=== PATIENT | female | born 1940 | race Caucasian/White ===

== ENCOUNTER 2020-01-11 08:49 | Outpatient (CLI) | payer MEDICARE, SELFPAY ==
[2020-01-11 08:59] LABS: Basophils Absolute Auto 0.06 K/mm3 (0.00-0.10); Basophils Percent Auto 0.9 % (0.0-1.0); Eosinophils Absolute Auto 0.17 K/mm3 (0.02-0.50); Eosinophils Percent Auto 2.4 % (1.0-6.0); Hematocrit 43.2 % (35.0-42.0); Hemoglobin 14.1 g/dL (11.7-13.8); Immature Granulocyte Absolute 0.03 K/mm3 (0.00-0.00); Immature Granulocyte Percent A 0.4 % (0.0-0.0); Lymphocytes Absolute Auto 2.45 K/mm3 (1.10-4.50); Lymphocytes Percent Auto 34.8 % (18.0-42.0); Mean Corpuscular HGB Conc 32.6 g/dL (32.0-36.0); Mean Corpuscular Hemoglobin 29.9 pg (27.0-31.0); Mean Corpuscular Volume 91.7 fL (78.0-102.0); Mean Platelet Volume 12.1 fl (9.2-11.8); Monocytes Absolute Auto 0.84 K/mm3 (0.10-0.90); Monocytes Percent Auto 11.9 % (2.0-11.0); Neutrophils Absolute Auto 3.5 K/mm3 (1.7-7.2); Neutrophils Percent Auto 49.6 % (50.0-70.0); Platelet Count Result 133 K/mm3 (150-420); Red Blood Count 4.71 M/mm3 (4.20-5.40); Red Cell Distribution Width 13.7 % (11.6-14.4); White Blood Count 7.1 K/mm3 (4.8-10.8)
[2020-01-11 09:23] LABS: MALB Creatinine Ratio 22.7 mg/g (0-30); Microalbumin Urine Random 10.9 mg/L
[2020-01-11 10:04] LABS: Alanine Aminotransferase 19 U/L (14-59); Albumin Level 3.6 g/dL (3.4-5.0); Alkaline Phosphatase 69 U/L (46-116); Anion Gap 9.4 mmol/L (7-16); Aspartate Amino Transferase 18 U/L (15-37); Bilirubin,Total 0.6 mg/dL (0.00-1.00); Blood Urea Nitrogen 17 mg/dL (7-18); Calcium 9.1 mg/dL (8.5-10.1); Carbon Dioxide 30 mmol/L (21-32); Chloride 105 mmol/L (98-108); Estimated Glomerular Filt Rate 57; Glucose 106 mg/dL (70-99); Osmolality Calculated 291 mOsm/kg (285-295); Potassium 4.4 mmol/L (3.5-5.1); Sodium 140 mmol/L (136-145); Thyroid Stimulating Hormone 5.05 uIU/mL (0.36-3.74); Total Protein 6.5 g/dL (6.4-8.2)
== END 2020-01-11 08:50 | disposition home or self-care (01) ==
PROVIDERS: PCP Family Medicine; Visit Provider Family Medicine
DX: E78.2 Mixed hyperlipidemia (principal); E11.21 Type 2 diabetes mellitus with diabetic nephropathy; I10 Essential (primary) hypertension
CPT/HCPCS: 36415; 80053; 82043; 84443; 85025

== ENCOUNTER 2020-01-17 12:33 | Outpatient (CLI) | payer MEDICARE, SELFPAY ==
[2020-01-17 12:55] LABS: Hemoglobin A1C 7.2 % (<5.7)
== END 2020-01-17 12:34 | disposition home or self-care (01) ==
LOC: CHSLAB 12:35
PROVIDERS: PCP Family Medicine; Visit Provider Family Medicine
DX: E11.21 Type 2 diabetes mellitus with diabetic nephropathy (principal)
CPT/HCPCS: 36415; 83036

== ENCOUNTER 2020-03-27 11:11 | Outpatient (CLI) | payer MEDICARE, SELFPAY ==
--- NOTE | ~2020-03-27 | XR_ITS ---
EXAMINATION: XR ankle RT min 3V EXAM DATE: 03/27/2020 11:30 INDICATION: No known recent injury provided at this time. Pain of the right ankle. TECHNIQUE: Right ankle frontal, lateral and oblique projections obtained and reviewed. There is no p rior study for comparison. FINDINGS: The right ankle mortise appears intact. There are no acute fractures or dislocations iden tified. There is no subcutaneous gas. The soft tissue is unremarkable. There are no radiopaque fo reign bodies. There is mild to moderate right ankle primary osteoarthritis. Bulky hypertrophy along the posterior subtalar compartment. Large posterior, moderate size inferior calcaneal spurs. Moderat e polyarticular midfoot primary osteoarthritis. IMPRESSION: Osteoarthritis. Calcaneal spurs. Reviewed, dictated and finalized at location A.
== END 2020-03-27 11:12 | disposition home or self-care (01) ==
LOC: CHSIMG 11:13
PROVIDERS: PCP Family Medicine; Visit Provider Family Medicine
DX: M25.571 Pain in right ankle and joints of right foot (principal)
CPT/HCPCS: 73610

== ENCOUNTER 2020-03-29 10:58 | Outpatient (RCR) | payer MEDICARE, SELFPAY ==
--- NOTE | 2020-03-29 13:11 | PTOPEVAL ---
Thank you for referring Delilah Latif to [facility].? The patient is scheduled to be seen for therapy? __3__x/week for 9 visits. Please review, sign, date and return this plan of care YO. I agree with and certify that the following plan of care is medically necessary. Referring Physician Date Admitting Provider: Attending Provider: Tigre Romero MD Referring Provider: *PT Outpatient Evaluation Start: 03/29/20 11:04 Freq: Status: Active Protocol: Document 03/29/20 11:05 JOSEPH (Rec: 03/29/20 13:11 JOSEPH [id number]) Therapy Assessment Status Assessment Status Assessment Status Evaluation Evaluation Information Problem Diagnosis right foot and ankle pain Onset 03/14/20 Subjective Information Pt. reports that she began Query Text:As Reported By Patient/ noting foot pain about 2 weeks Family ago. She describes pain on the top of the right foot. She did undergo xray which revealed arthritis. She states that pain in the foot is increased with walking and standing activities. She states that she does not recall anything that will decrease her pain. She states that she is less active since developing foot pain. She reports that her goal is to decrease her right foot pain. Prior Level of Function Activity Level (Last 3 Months) Occupation retired Hand Dominance Right Activity of Daily Living Ability Independent Indoor/Home Mobility Independent Community Mobility Independent Stairs Ability Independent Functional Cognition (Planning, Shopping Independent , Taking Medications) Cooking Yes Cleaning Yes Laundry Yes Shopping Yes Driving Yes Pain Assessment Pain Scale Pain Scale Used Numeric (1 - 10) Self Report Pain Assessment Right Foot/Feet Reported Pain Level 8 Pain Description Aching Pain Frequency Intermittent Pain Aggravating Factors Walking,Weight Bearing/ Standing Pain Score Pain Score 8: Self Report Lower Extremity Range of Motion General Lower Extremity Range of Motion Gross Lower Extremity Range of Motion right ankle dorsiflexion 2 Comments degree
== END 2020-04-19 10:47 | disposition home or self-care (01) ==
LOC: CHSPT 10:58
PROVIDERS: PCP Family Medicine; Visit Provider Family Medicine
DX: M25.571 Pain in right ankle and joints of right foot (principal); M79.671 Pain in right foot
CPT/HCPCS: 97014; 97110; 97112; 97140; 97161; G0283

== ENCOUNTER 2020-05-07 09:54 | Outpatient (CLI) | payer MEDICARE, SELFPAY ==
[2020-05-07 10:15] LABS: Basophils Absolute Auto 0.07 K/mm3 (0.00-0.10); Basophils Percent Auto 0.9 % (0.0-1.0); Eosinophils Absolute Auto 0.15 K/mm3 (0.02-0.50); Hematocrit 42.9 % (35.0-42.0); Hemoglobin 13.7 g/dL (11.7-13.8); Immature Granulocyte Absolute 0.03 K/mm3 (0.00-0.00); Immature Granulocyte Percent A 0.4 % (0.0-0.0); Lymphocytes Absolute Auto 2.28 K/mm3 (1.10-4.50); Lymphocytes Percent Auto 30.4 % (18.0-42.0); Mean Corpuscular HGB Conc 31.9 g/dL (32.0-36.0); Mean Corpuscular Hemoglobin 29.3 pg (27.0-31.0); Mean Corpuscular Volume 91.7 fL (78.0-102.0); Monocytes Absolute Auto 0.76 K/mm3 (0.10-0.90); Monocytes Percent Auto 10.1 % (2.0-11.0); Neutrophils Absolute Auto 4.2 K/mm3 (1.7-7.2); Neutrophils Percent Auto 56.2 % (50.0-70.0); Platelet Count Result 154 K/mm3 (150-420); Red Blood Count 4.68 M/mm3 (4.20-5.40); Red Cell Distribution Width 13.5 % (11.6-14.4); White Blood Count 7.5 K/mm3 (4.8-10.8)
[2020-05-07 10:47] LABS: Hemoglobin A1C 6.7 % (<5.7)
[2020-05-07 11:48] LABS: Anion Gap 8 mmol/L (8-16); Blood Urea Nitrogen 16 mg/dL (7-18); Calcium 9.3 mg/dL (8.5-10.1); Carbon Dioxide 28 mmol/L (21-32); Chloride 105 mmol/L (98-108); Cholesterol 152 mg/dL (0-200); Estimated Glomerular Filt Rate > 60; Free T4 Free Thyroxine 1.03 ng/dL (0.76-1.46); Glucose 131 mg/dL (70-99); HDL Direct 63 mg/dL (40-60); LDL Cholesterol Calculated 64 mg/dL (<130); Osmolality Calculated 295 mOsm/kg (285-295); Potassium 4.7 mmol/L (3.5-5.1); Sodium 141 mmol/L (136-145); Thyroid Stimulating Hormone 5.03 uIU/mL (0.36-3.74); Triglycerides 127 mg/dL (0-150)
== END 2020-05-07 09:55 | disposition home or self-care (01) ==
LOC: CHSLAB 09:58
PROVIDERS: PCP Family Medicine; Visit Provider Internal Medicine Cardiovascular Disease
DX: E78.00 Pure hypercholesterolemia, unspecified (principal); I25.10 Atherosclerotic heart disease of native coronary artery without angina pectoris; E11.21 Type 2 diabetes mellitus with diabetic nephropathy
CPT/HCPCS: 36415; 80048; 80061; 83036; 84439; 84443; 85025

== ENCOUNTER 2020-08-08 10:44 | Outpatient (CLI) | payer MEDICARE, SELFPAY ==
[2020-08-08 11:03] LABS: Basophils Absolute Auto 0.06 K/mm3 (0.00-0.10); Basophils Percent Auto 0.7 % (0.0-1.0); Eosinophils Absolute Auto 0.34 K/mm3 (0.02-0.50); Eosinophils Percent Auto 3.9 % (1.0-6.0); Hematocrit 41.6 % (35.0-42.0); Hemoglobin 13.6 g/dL (11.7-13.8); Immature Granulocyte Absolute 0.03 K/mm3 (0.00-0.00); Immature Granulocyte Percent A 0.3 % (0.0-0.0); Immature Platelet Fraction Pct 7.6 % (1.0-7.0); Lymphocytes Absolute Auto 2.42 K/mm3 (1.10-4.50); Lymphocytes Percent Auto 28.1 % (18.0-42.0); Mean Corpuscular HGB Conc 32.7 g/dL (32.0-36.0); Mean Corpuscular Hemoglobin 28.9 pg (27.0-31.0); Mean Corpuscular Volume 88.5 fL (78.0-102.0); Mean Platelet Volume 11.9 fl (9.2-11.8); Monocytes Absolute Auto 0.86 K/mm3 (0.10-0.90); Neutrophils Absolute Auto 4.9 K/mm3 (1.7-7.2); Platelet Count Result 139 K/mm3 (150-420); Red Cell Distribution Width 13.2 % (11.6-14.4); White Blood Count 8.6 K/mm3 (4.8-10.8)
[2020-08-08 11:22] LABS: Hemoglobin A1C 7.6 % (<5.7)
[2020-08-08 12:25] LABS: Anion Gap 11 mmol/L (8-16); Blood Urea Nitrogen 19 mg/dL (7-18); Calcium 9.2 mg/dL (8.5-10.1); Carbon Dioxide 25 mmol/L (21-32); Chloride 103 mmol/L (98-108); Estimated Glomerular Filt Rate > 60; Free T4 Free Thyroxine 0.97 ng/dL (0.76-1.46); Glucose 167 mg/dL (70-99); Osmolality Calculated 294 mOsm/kg (285-295); Potassium 4.3 mmol/L (3.5-5.1); Sodium 139 mmol/L (136-145); Thyroid Stimulating Hormone 4.04 uIU/mL (0.36-3.74)
== END 2020-08-08 10:45 | disposition home or self-care (01) ==
LOC: CHSLAB 10:45
PROVIDERS: PCP Family Medicine; Visit Provider Family Medicine
DX: E11.21 Type 2 diabetes mellitus with diabetic nephropathy (principal); E78.2 Mixed hyperlipidemia; R94.6 Abnormal results of thyroid function studies
CPT/HCPCS: 36415; 80048; 83036; 84439; 84443; 85025; 85055

== ENCOUNTER 2020-09-11 10:50 | Outpatient (CLI) | payer MEDICARE, SELFPAY ==
--- NOTE | ~2020-09-11 | XR_ITS ---
EXAMINATION: XR lumbar spine 2-3V EXAM DATE: 09/11/2020 11:12 INDICATION: Right hip pain. TECHNIQUE: Lumber spine frontal, lateral, lateral L5-S1 projections for interpretation. Comparison is made to prior examination from 06/18/2017. FINDINGS: Diffuse mild to moderate lumbar disc disease. There is severe lumbar facet arthropathy. T he vertebral body heights are maintained. There is 3 mm anterolisthesis L4 on L5. No spondylolysis. M oderate abdominal aortic arterial sclerosis without evidence of aneurysm. Mild lumbar levoscoliosis. Evidence of mild progression in degenerative changes compared to prior study. Probable large peripher ally calcified gallstones. IMPRESSION: Severe lumbar facet arthropathy, mild to moderate disc disease. Reviewed, dictated and finalized at location A.
--- NOTE | ~2020-09-11 | XR_ITS ---
EXAMINATION: XR hip RT min 2V DATE: 09/11/2020 11:12 INDICATION: Right hip pain. TECHNIQUE: 2 views of right hip were obtained. COMPARISON: Right hip radiographs 06/18/2017 FINDINGS: Bone alignment is normal. No fracture. Right hip joint space is normal. IMPRESSION: 1. Normal right hip. Reviewed, dictated and finalized at location A. IMPRESSION: 1. Normal right hip.
== END 2020-09-11 10:51 | disposition home or self-care (01) ==
LOC: CHSIMG 10:52
PROVIDERS: PCP Family Medicine; Visit Provider Family Medicine
DX: M25.551 Pain in right hip (principal)
CPT/HCPCS: 72100; 73502

== ENCOUNTER 2020-12-12 08:36 | Outpatient (CLI) | payer MEDICARE, SELFPAY ==
[2020-12-12 08:56] LABS: Basophils Absolute Auto 0.06 K/mm3 (0.00-0.10); Basophils Percent Auto 0.8 % (0.0-1.0); Eosinophils Absolute Auto 0.22 K/mm3 (0.02-0.50); Eosinophils Percent Auto 3.1 % (1.0-6.0); Hemoglobin 13.6 g/dL (11.7-13.8); Immature Granulocyte Absolute 0.02 K/mm3 (0.00-0.00); Immature Granulocyte Percent A 0.3 % (0.0-0.0); Lymphocytes Absolute Auto 2.31 K/mm3 (1.10-4.50); Lymphocytes Percent Auto 32.7 % (18.0-42.0); Mean Corpuscular HGB Conc 33.2 g/dL (32.0-36.0); Mean Corpuscular Volume 90.3 fL (78.0-102.0); Monocytes Absolute Auto 0.69 K/mm3 (0.10-0.90); Monocytes Percent Auto 9.8 % (2.0-11.0); Neutrophils Absolute Auto 3.8 K/mm3 (1.7-7.2); Neutrophils Percent Auto 53.3 % (50.0-70.0); Platelet Count Result 120 K/mm3 (150-420); Red Blood Count 4.54 M/mm3 (4.20-5.40); Red Cell Distribution Width 13.7 % (11.6-14.4); White Blood Count 7.1 K/mm3 (4.8-10.8)
[2020-12-12 09:06] LABS: Hemoglobin A1C 7.6 % (<5.7)
[2020-12-12 10:10] LABS: Alanine Aminotransferase 18 U/L (14-59); Albumin Level 3.5 g/dL (3.4-5.0); Alkaline Phosphatase 71 U/L (46-116); Anion Gap 9 mmol/L (8-16); Aspartate Amino Transferase 12 U/L (15-37); Bilirubin,Total 0.6 mg/dL (0.00-1.00); Blood Urea Nitrogen 17 mg/dL (7-18); Calcium 9.2 mg/dL (8.5-10.1); Carbon Dioxide 27 mmol/L (21-32); Chloride 106 mmol/L (98-108); Estimated Glomerular Filt Rate > 60; Free T4 Free Thyroxine 1.02 ng/dL (0.76-1.46); Glucose 105 mg/dL (70-99); Osmolality Calculated 295 mOsm/kg (285-295); Potassium 4.3 mmol/L (3.5-5.1); Sodium 142 mmol/L (136-145); Total Protein 6.2 g/dL (6.4-8.2)
[2020-12-12 10:31] LABS: Thyroid Stimulating Hormone 4.63 uIU/mL (0.36-3.74)
== END 2020-12-12 08:37 | disposition home or self-care (01) ==
LOC: CHSLAB 08:38
PROVIDERS: PCP Family Medicine; Visit Provider Family Medicine
DX: E11.21 Type 2 diabetes mellitus with diabetic nephropathy (principal); R94.6 Abnormal results of thyroid function studies
CPT/HCPCS: 36415; 80053; 83036; 84439; 84443; 85025

== ENCOUNTER 2021-04-25 10:15 | Outpatient (CLI) | payer MEDICARE, SELFPAY ==
[2021-04-25 10:32] LABS: Basophils Absolute Auto 0.04 K/mm3 (0.00-0.10); Basophils Percent Auto 0.5 % (0.0-1.0); Eosinophils Percent Auto 2.5 % (1.0-6.0); Hematocrit 42.3 % (35.0-42.0); Hemoglobin 13.8 g/dL (11.7-13.8); Immature Granulocyte Absolute 0.04 K/mm3 (0.00-0.00); Immature Granulocyte Percent A 0.5 % (0.0-0.0); Lymphocytes Absolute Auto 2.43 K/mm3 (1.10-4.50); Lymphocytes Percent Auto 30.5 % (18.0-42.0); Mean Corpuscular HGB Conc 32.6 g/dL (32.0-36.0); Mean Corpuscular Hemoglobin 29.7 pg (27.0-31.0); Mean Corpuscular Volume 91.2 fL (78.0-102.0); Mean Platelet Volume 11.2 fl (9.2-11.8); Monocytes Percent Auto 10.1 % (2.0-11.0); Neutrophils Absolute Auto 4.5 K/mm3 (1.7-7.2); Neutrophils Percent Auto 55.9 % (50.0-70.0); Platelet Count Result 165 K/mm3 (150-420); Red Blood Count 4.64 M/mm3 (4.20-5.40); Red Cell Distribution Width 13.8 % (11.6-14.4)
[2021-04-25 10:36] LABS: Add Urine Microscopic? YES; Appearance Urine Clear (Clear); Bilirubin Urine Negative (Negative); Blood Urine Negative (Negative); Color Urine Light Yellow (Yellow); Glucose Urine UA Negative (Negative); Ketones Urine Negative (Negative); Leukocyte Esterase Ur 1+ (Negative); Nitrate Urine Negative (Negative); Protein Urine Negative (Negative); Specific Grav Ur 1.025 (1.010-1.020); Urobilinogen Urine 0.2 mg/dL (0.2-1.0)
[2021-04-25 10:43] LABS: RBC Urine None seen /hpf (0-2); Squamous Epithelial Cell Urine Many /hpf (Few)
[2021-04-25 10:44] LABS: Bacteria Urine 1+ /hpf; Hemoglobin A1C 7.8 % (<5.7)
[2021-04-25 10:52] LABS: Creatinine Urine 178.71 mg/dL (40-278); MALB Creatinine Ratio 7.2 mg/g (0-30); Microalbumin Urine Random < 13.0 mg/L
[2021-04-25 11:12] LABS: Alanine Aminotransferase 27 U/L (14-59); Albumin Level 3.6 g/dL (3.4-5.0); Alkaline Phosphatase 73 U/L (46-116); Anion Gap 10 mmol/L (8-16); Aspartate Amino Transferase 17 U/L (15-37); Bilirubin,Total 0.7 mg/dL (0.00-1.00); Blood Urea Nitrogen 16 mg/dL (7-18); Calcium 8.9 mg/dL (8.5-10.1); Carbon Dioxide 28 mmol/L (21-32); Chloride 105 mmol/L (98-108); Estimated Glomerular Filt Rate > 60; Free T4 Free Thyroxine 1.14 ng/dL (0.76-1.46); Glucose 146 mg/dL (70-99); Osmolality Calculated 300 mOsm/kg (285-295); Potassium 4.5 mmol/L (3.5-5.1); Sodium 143 mmol/L (136-145); Thyroid Stimulating Hormone 3.17 uIU/mL (0.36-3.74); Total Protein 6.4 g/dL (6.4-8.2)
== END 2021-04-25 10:16 | disposition home or self-care (01) ==
PROVIDERS: PCP Family Medicine; Visit Provider Family Medicine
DX: E11.21 Type 2 diabetes mellitus with diabetic nephropathy (principal)
CPT/HCPCS: 36415; 80053; 81001; 82043; 83036; 84439; 84443; 85025

== ENCOUNTER 2021-08-20 10:13 | Outpatient (CLI) | payer MEDICARE, SELFPAY ==
[2021-08-20 10:31] LABS: Basophils Absolute Auto 0.07 K/mm3 (0.00-0.10); Basophils Percent Auto 0.8 % (0.0-1.0); Eosinophils Absolute Auto 0.17 K/mm3 (0.02-0.50); Hemoglobin 14.3 g/dL (11.7-13.8); Immature Granulocyte Absolute 0.04 K/mm3 (0.00-0.00); Immature Granulocyte Percent A 0.5 % (0.0-0.0); Lymphocytes Absolute Auto 2.43 K/mm3 (1.10-4.50); Lymphocytes Percent Auto 28.6 % (18.0-42.0); Mean Corpuscular HGB Conc 32.5 g/dL (32.0-36.0); Mean Corpuscular Hemoglobin 29.7 pg (27.0-31.0); Mean Corpuscular Volume 91.3 fL (78.0-102.0); Mean Platelet Volume 11.7 fl (9.2-11.8); Monocytes Absolute Auto 0.83 K/mm3 (0.10-0.90); Monocytes Percent Auto 9.8 % (2.0-11.0); Neutrophils Percent Auto 58.3 % (50.0-70.0); Platelet Count Result 158 K/mm3 (150-420); Red Blood Count 4.82 M/mm3 (4.20-5.40); Red Cell Distribution Width 13.5 % (11.6-14.4); White Blood Count 8.5 K/mm3 (4.8-10.8)
[2021-08-20 10:55] LABS: Hemoglobin A1C 7.5 % (<5.7)
[2021-08-20 11:05] LABS: Anion Gap 10 mmol/L (8-16); Blood Urea Nitrogen 14 mg/dL (7-18); Calcium 9.5 mg/dL (8.5-10.1); Carbon Dioxide 29 mmol/L (21-32); Chloride 104 mmol/L (98-108); Cholesterol 145 mg/dL (0-200); Estimated Glomerular Filt Rate > 60; Glucose 158 mg/dL (70-99); HDL Direct 64 mg/dL (40-60); LDL Cholesterol Calculated 63 mg/dL (<130); Osmolality Calculated 299 mOsm/kg (285-295); Potassium 4.4 mmol/L (3.5-5.1); Sodium 143 mmol/L (136-145); Triglycerides 92 mg/dL (0-150)
== END 2021-08-20 10:14 | disposition home or self-care (01) ==
LOC: CHSLAB 10:16
PROVIDERS: PCP Family Medicine; Visit Provider Family Medicine
DX: E78.2 Mixed hyperlipidemia (principal); E11.21 Type 2 diabetes mellitus with diabetic nephropathy
CPT/HCPCS: 36415; 80048; 80061; 83036; 85025

== ENCOUNTER 2021-12-31 09:30 | Outpatient (CLI) | payer MEDICARE, SELFPAY ==
[2021-12-31 09:52] LABS: Basophils Absolute Auto 0.06 K/mm3 (0.00-0.10); Basophils Percent Auto 0.8 % (0.0-1.0); Eosinophils Absolute Auto 0.23 K/mm3 (0.02-0.50); Eosinophils Percent Auto 3.1 % (1.0-6.0); Hematocrit 42.7 % (35.0-42.0); Hemoglobin 13.9 g/dL (11.7-13.8); Immature Granulocyte Absolute 0.03 K/mm3 (0.00-0.00); Immature Granulocyte Percent A 0.4 % (0.0-0.0); Lymphocytes Absolute Auto 2.62 K/mm3 (1.10-4.50); Lymphocytes Percent Auto 34.9 % (18.0-42.0); Mean Corpuscular HGB Conc 32.6 g/dL (32.0-36.0); Mean Corpuscular Hemoglobin 29.6 pg (27.0-31.0); Mean Platelet Volume 12.3 fl (9.2-11.8); Monocytes Absolute Auto 0.74 K/mm3 (0.10-0.90); Monocytes Percent Auto 9.9 % (2.0-11.0); Neutrophils Absolute Auto 3.8 K/mm3 (1.7-7.2); Neutrophils Percent Auto 50.9 % (50.0-70.0); Platelet Count Result 135 K/mm3 (150-420); Red Blood Count 4.69 M/mm3 (4.20-5.40); Red Cell Distribution Width 13.7 % (11.6-14.4); White Blood Count 7.5 K/mm3 (4.8-10.8)
[2021-12-31 09:59] LABS: Hemoglobin A1C 7.9 % (<5.7)
[2021-12-31 10:02] LABS: Anion Gap 6 mmol/L (8-16); Blood Urea Nitrogen 17 mg/dL (7-18); Calcium 9.4 mg/dL (8.5-10.1); Carbon Dioxide 30 mmol/L (21-32); Chloride 106 mmol/L (98-108); Estimated Glomerular Filt Rate > 60; Glucose 157 mg/dL (70-99); Osmolality Calculated 298 mOsm/kg (285-295); Potassium 4.6 mmol/L (3.5-5.1); Sodium 142 mmol/L (136-145)
== END 2021-12-31 09:31 | disposition home or self-care (01) ==
LOC: CHSLAB 09:35
PROVIDERS: PCP Family Medicine; Visit Provider Family Medicine
DX: E78.2 Mixed hyperlipidemia (principal); E11.21 Type 2 diabetes mellitus with diabetic nephropathy
CPT/HCPCS: 36415; 80048; 83036; 85025

== ENCOUNTER 2022-04-22 09:59 | Outpatient (CLI) | payer MEDICARE, SELFPAY ==
[2022-04-22 10:22] LABS: Basophils Absolute Auto 0.06 K/mm3 (0.00-0.10); Basophils Percent Auto 0.8 % (0.0-1.0); Eosinophils Absolute Auto 0.16 K/mm3 (0.02-0.50); Eosinophils Percent Auto 2.1 % (1.0-6.0); Hematocrit 42.5 % (35.0-42.0); Hemoglobin 13.6 g/dL (11.7-13.8); Immature Granulocyte Absolute 0.03 K/mm3 (0.00-0.00); Immature Granulocyte Percent A 0.4 % (0.0-0.0); Lymphocytes Absolute Auto 2.41 K/mm3 (1.10-4.50); Lymphocytes Percent Auto 31.5 % (18.0-42.0); Mean Corpuscular Hemoglobin 29.4 pg (27.0-31.0); Mean Platelet Volume 12.2 fl (9.2-11.8); Monocytes Absolute Auto 0.75 K/mm3 (0.10-0.90); Monocytes Percent Auto 9.8 % (2.0-11.0); Neutrophils Absolute Auto 4.2 K/mm3 (1.7-7.2); Neutrophils Percent Auto 55.4 % (50.0-70.0); Platelet Count Result 126 K/mm3 (150-420); Red Blood Count 4.62 M/mm3 (4.20-5.40); Red Cell Distribution Width 13.4 % (11.6-14.4); White Blood Count 7.6 K/mm3 (4.8-10.8)
[2022-04-22 10:28] LABS: Creatinine Urine 118.61 mg/dL (40-278); MALB Creatinine Ratio 16.7 mg/g (0-30); Microalbumin Urine Random 19.9 mg/L
[2022-04-22 10:31] LABS: Hemoglobin A1C 7.6 % (<5.7)
[2022-04-22 10:48] LABS: Alanine Aminotransferase 17 U/L (14-59); Albumin Level 3.6 g/dL (3.4-5.0); Alkaline Phosphatase 78 U/L (46-116); Anion Gap 5 mmol/L (8-16); Aspartate Amino Transferase 13 U/L (15-37); Bilirubin,Total 0.7 mg/dL (0.00-1.00); Blood Urea Nitrogen 17 mg/dL (7-18); Calcium 9.2 mg/dL (8.5-10.1); Carbon Dioxide 31 mmol/L (21-32); Chloride 104 mmol/L (98-108); Estimated Glomerular Filt Rate > 60; Free T4 Free Thyroxine 1.16 ng/dL (0.76-1.46); Glucose 159 mg/dL (70-99); Osmolality Calculated 294 mOsm/kg (285-295); Potassium 4.7 mmol/L (3.5-5.1); Sodium 140 mmol/L (136-145); Total Protein 6.3 g/dL (6.4-8.2)
== END 2022-04-22 10:00 | disposition home or self-care (01) ==
LOC: CHSLAB 10:03
PROVIDERS: PCP Family Medicine; Visit Provider Family Medicine
DX: E11.21 Type 2 diabetes mellitus with diabetic nephropathy (principal)
CPT/HCPCS: 36415; 80053; 82043; 83036; 84439; 85025

== ENCOUNTER 2022-08-25 09:29 | Outpatient (CLI) | payer MEDICARE, SELFPAY ==
[2022-08-25 09:47] LABS: Basophils Absolute Auto 0.07 K/mm3 (0.00-0.10); Basophils Percent Auto 1.1 % (0.0-1.0); Eosinophils Absolute Auto 0.16 K/mm3 (0.02-0.50); Eosinophils Percent Auto 2.5 % (1.0-6.0); Hematocrit 41.4 % (35.0-42.0); Hemoglobin 13.6 g/dL (11.7-13.8); Immature Granulocyte Absolute 0.03 K/mm3 (0.00-0.00); Immature Granulocyte Percent A 0.5 % (0.0-0.0); Immature Platelet Fraction Pct 7.3 % (1.0-7.0); Lymphocytes Absolute Auto 2.38 K/mm3 (1.10-4.50); Lymphocytes Percent Auto 36.7 % (18.0-42.0); Mean Corpuscular HGB Conc 32.9 g/dL (32.0-36.0); Mean Corpuscular Hemoglobin 29.8 pg (27.0-31.0); Mean Corpuscular Volume 90.8 fL (78.0-102.0); Monocytes Absolute Auto 0.64 K/mm3 (0.10-0.90); Monocytes Percent Auto 9.9 % (2.0-11.0); Neutrophils Absolute Auto 3.2 K/mm3 (1.7-7.2); Neutrophils Percent Auto 49.3 % (50.0-70.0); Platelet Count Result 127 K/mm3 (150-420); Red Blood Count 4.56 M/mm3 (4.20-5.40); Red Cell Distribution Width 13.6 % (11.6-14.4); White Blood Count 6.5 K/mm3 (4.8-10.8)
[2022-08-25 10:07] LABS: Hemoglobin A1C 7.9 % (<5.7)
[2022-08-25 10:23] LABS: Alanine Aminotransferase 17 U/L (14-59); Albumin Level 3.5 g/dL (3.4-5.0); Alkaline Phosphatase 72 U/L (46-116); Anion Gap 10 mmol/L (8-16); Aspartate Amino Transferase 15 U/L (15-37); Bilirubin,Total 0.7 mg/dL (0.00-1.00); Blood Urea Nitrogen 19 mg/dL (7-18); Calcium 9.4 mg/dL (8.5-10.1); Carbon Dioxide 28 mmol/L (21-32); Chloride 106 mmol/L (98-108); Estimated Glomerular Filt Rate > 60; Glucose 149 mg/dL (70-99); Osmolality Calculated 303 mOsm/kg (285-295); Potassium 4.2 mmol/L (3.5-5.1); Sodium 144 mmol/L (136-145); Thyroid Stimulating Hormone 4.06 uIU/mL (0.36-3.74); Total Protein 6.2 g/dL (6.4-8.2)
[2022-08-25 17:13] LABS: Free T4 Free Thyroxine 1.13 ng/dL (0.76-1.46)
== END 2022-08-25 09:30 | disposition home or self-care (01) ==
LOC: CHSLAB 09:32
PROVIDERS: PCP Family Medicine; Visit Provider Family Medicine
DX: E11.21 Type 2 diabetes mellitus with diabetic nephropathy (principal); R94.6 Abnormal results of thyroid function studies
CPT/HCPCS: 36415; 80053; 83036; 84439; 84443; 85025; 85055

== ENCOUNTER 2022-11-21 10:22 | Outpatient (CLI) | payer MEDICARE, SELFPAY ==
[2022-11-21 10:43] LABS: Basophils Absolute Auto 0.07 K/mm3 (0.00-0.10); Eosinophils Absolute Auto 0.23 K/mm3 (0.02-0.50); Eosinophils Percent Auto 3.2 % (1.0-6.0); Hematocrit 42.6 % (35.0-42.0); Hemoglobin 13.6 g/dL (11.7-13.8); Immature Granulocyte Absolute 0.02 K/mm3 (0.00-0.00); Immature Granulocyte Percent A 0.3 % (0.0-0.0); Lymphocytes Absolute Auto 2.34 K/mm3 (1.10-4.50); Mean Corpuscular HGB Conc 31.9 g/dL (32.0-36.0); Mean Corpuscular Hemoglobin 29.3 pg (27.0-31.0); Mean Corpuscular Volume 91.8 fL (78.0-102.0); Monocytes Percent Auto 9.9 % (2.0-11.0); Neutrophils Absolute Auto 3.7 K/mm3 (1.7-7.2); Neutrophils Percent Auto 52.6 % (50.0-70.0); Platelet Count Result 127 K/mm3 (150-420); Red Blood Count 4.64 M/mm3 (4.20-5.40); Red Cell Distribution Width 13.7 % (11.6-14.4); White Blood Count 7.1 K/mm3 (4.8-10.8)
[2022-11-21 13:40] LABS: Alanine Aminotransferase 21 U/L (14-59); Albumin Level 3.5 g/dL (3.4-5.0); Alkaline Phosphatase 77 U/L (46-116); Anion Gap 6 mmol/L (8-16); Aspartate Amino Transferase 18 U/L (15-37); Bilirubin,Total 0.9 mg/dL (0.00-1.00); Blood Urea Nitrogen 22 mg/dL (7-18); Calcium 9.4 mg/dL (8.5-10.1); Carbon Dioxide 30 mmol/L (21-32); Chloride 106 mmol/L (98-108); Estimated Glomerular Filt Rate > 60; Glucose 139 mg/dL (70-99); Osmolality Calculated 299 mOsm/kg (285-295); Potassium 4.6 mmol/L (3.5-5.1); Sodium 142 mmol/L (136-145); Total Protein 6.3 g/dL (6.4-8.2)
== END 2022-11-21 10:23 | disposition home or self-care (01) ==
LOC: CHSLAB 10:25
PROVIDERS: PCP Family Medicine; Visit Provider Family Medicine
DX: I10 Essential (primary) hypertension (principal); E11.21 Type 2 diabetes mellitus with diabetic nephropathy
CPT/HCPCS: 36415; 80053; 83036; 85025

== ENCOUNTER 2023-01-22 00:54 | Emergency (ER) | payer MEDICARE, SELFPAY ==
[2023-01-22 00:55] VITALS: BP 135/43; PULSE 77; RESP 18; TEMP 37; O2SAT 96
--- NOTE | 2023-01-22 01:06 | ED.WOUNDLAC ---
HPI - Wound/Laceration General Chief Complaint: Wound/Laceration Stated Complaint: Leg Laceration Source: patient Mode of arrival: ambulatory Limitations: no limitations History of Present Illness HPI narrative: 82-year-old female with obesity, SILVIO, arthritis, diabetes mellitus, dyslipidemia, hypertension CAD status post AVR status post LAD/ RCA stents, heart failure with bilateral leg swelling presents to the she -- sustained a 1 cm superficial laceration on the left rizvi with profuse watery discharge. Patient is on diuretics and anti failure treatment and has decreasing size of bilateral lower extremities. No chest pain or shortness of breath. Onset (ago): hour(s) ( 1 hour ago) Location: other ( left leg) Body four view annotation: 1. 1 cm superficial laceration left rizvi Place: home Patient tetanus UTD: No Context: accidental Associated symptoms: none ( increased watery discharge from the laceration) Related Data Home Medications Medication Instructions Recorded Confirmed aspirin 81 mg tablet,delayed 81 mg PO DAILY 09/30/21 01/22/23 release benazepril 40 mg tablet 60 mg PO DAILY 09/30/21 01/22/23 docusate sodium 50 mg capsule 100 mg PO DAILY 09/30/21 01/22/23 (Colace Clear) furosemide 40 mg tablet 60 mg PO QAM 09/30/21 01/22/23 insulin glargine 100 unit/mL (3 34 unit subcut QPM 09/30/21 01/22/23 mL) subcutaneous pen (Lantus Solostar U-100 Insulin) insulin lispro 100 unit/mL 1 sliding scale dose subcut 09/30/21 01/22/23 subcutaneous cartridge (Humalog USEASDIRECTD U-100 Insulin) metoprolol succinate 100 mg 100 mg PO DAILY 09/30/21 01/22/23 tablet,extended release 24 hr potassium chloride 20 mEq 20 meq PO DAILY 09/30/21 01/22/23 tablet,extended release(part/cryst) (Klor-Con M) rosuvastatin 40 mg tablet (Crestor) 40 mg PO HS 09/30/21 01/22/23 cholecalciferol (vitamin D3) 50 50 mcg PO DAILY 01/22/23 01/22/23 mcg (2,000 unit) tablet (Vitamin D3) Allergies Allergy/AdvReac Type Severity Reaction Status Date / Time pentazocine Allergy Unknown ALMOST Verified 12/11/22 10:47 FAINTED amoxicillin Allergy Loss of Verified 01/22/23 01:07 Consciousness Review of Systems Review of Systems: All systems reviewed & are unremarkable except as noted in HPI and below Constitutional: Constitutional: Reports as per HPI and Reports no additional constitutional complaints Eyes: Eyes: Reports as per HPI and Reports no additional eye complaints ENT: Reports system reviewed and no additional complaints, except as documented and Reports as per HPI Cardiovascular: Cardiovascular: Reports as per HPI and Reports no additional cardiovascular complaints Respiratory: Respiratory: Reports as per HPI and Reports no additional respiratory complaints Gastrointestinal: Gastrointestinal: Reports as per HPI and Reports no additional gastrointestinal complaints Genitourinary: Genitourinary: Reports no additional female genitourinary complaints and Reports as per HPI Musculoskeletal: Musculoskeletal: Reports no additional musculoskeletal complaints and Reports as per HPI Integumentary/Breasts: Comments: 1 cm superficial laceration left rizvi which watery discharge. Neurologic: Reports system reviewed and no additional complaints, except as documented Psychiatric: Psychiatric: Reports no additional psychiatric complaints and Reports as per HPI Endocrine: Endocrine: Reports no additional endocrine complaints and Reports as per HPI Hematologic/Lymphatic: Hematologic/Lymphatic: Reports no additional hematologic/lymphatic complaints and Reports as per HPI Allergic/Immunologic: Allergic/Immunologic: Reports no additional allergic/immunologic complaints and Reports as per HPI PMFSH Past Medical History Medical History BMI greater than 40 Diabetes High cholesterol Hypertension Left knee DJD Right knee pain Surgical History Surgi
[2023-01-22 01:22] VITALS: BP 151/58
[2023-01-22] MEDS: TETANUS,DIPHTHERIA,AC PERTUSSIS ADULT 0.5 ML (ADACEL) IM (01:24)
== END 2023-01-22 01:43 | disposition home or self-care (01) ==
PROVIDERS: Emergency Provider Internal Medicine Critical Care Medicine; PCP Family Medicine
DX: S81.812A Laceration without foreign body, left lower leg, initial encounter (principal); I25.10 Atherosclerotic heart disease of native coronary artery without angina pectoris; E78.5 Hyperlipidemia, unspecified; E11.9 Type 2 diabetes mellitus without complications; I11.0 Hypertensive heart disease with heart failure; I50.9 Heart failure, unspecified; Z87.891 Personal history of nicotine dependence; Z23 Encounter for immunization; Z79.4 Long term (current) use of insulin; Z79.82 Long term (current) use of aspirin; W45.8XXA Other foreign body or object entering through skin, initial encounter
CPT/HCPCS: 12001; 90471; 90715; 99282

== ENCOUNTER 2023-03-03 10:17 | Outpatient (CLI) | payer MEDICARE, SELFPAY ==
[2023-03-03 10:29] LABS: Basophils Absolute Auto 0.07 K/mm3 (0.00-0.10); Basophils Percent Auto 0.9 % (0.0-1.0); Eosinophils Absolute Auto 0.17 K/mm3 (0.02-0.50); Eosinophils Percent Auto 2.2 % (1.0-6.0); Hematocrit 41.9 % (35.0-42.0); Hemoglobin 13.6 g/dL (11.7-13.8); Immature Granulocyte Absolute 0.02 K/mm3 (0.00-0.00); Immature Granulocyte Percent A 0.3 % (0.0-0.0); Lymphocytes Absolute Auto 2.01 K/mm3 (1.10-4.50); Lymphocytes Percent Auto 26.4 % (18.0-42.0); Mean Corpuscular HGB Conc 32.5 g/dL (32.0-36.0); Mean Corpuscular Volume 92.3 fL (78.0-102.0); Mean Platelet Volume 12.3 fl (9.2-11.8); Monocytes Absolute Auto 0.76 K/mm3 (0.10-0.90); Neutrophils Absolute Auto 4.6 K/mm3 (1.7-7.2); Neutrophils Percent Auto 60.2 % (50.0-70.0); Platelet Count Result 131 K/mm3 (150-420); Red Blood Count 4.54 M/mm3 (4.20-5.40); Red Cell Distribution Width 13.3 % (11.6-14.4); White Blood Count 7.6 K/mm3 (4.8-10.8)
[2023-03-03 11:06] LABS: Anion Gap 6 mmol/L (8-16); Blood Urea Nitrogen 14 mg/dL (7-18); Calcium 9.2 mg/dL (8.5-10.1); Carbon Dioxide 30 mmol/L (21-32); Chloride 106 mmol/L (98-108); Cholesterol 141 mg/dL (0-200); Estimated Glomerular Filt Rate > 60; Glucose 125 mg/dL (70-99); HDL Direct 57 mg/dL (40-60); LDL Cholesterol Calculated 58 mg/dL (<130); Osmolality Calculated 295 mOsm/kg (285-295); Sodium 142 mmol/L (136-145); Triglycerides 131 mg/dL (0-150)
[2023-03-05 11:44] LABS: Thyroid Stimulating Hormone 5.36 uIU/mL (0.36-3.74)
[2023-03-06 10:26] LABS: Free T4 Free Thyroxine 0.99 ng/dL (0.76-1.46)
== END 2023-03-03 10:18 | disposition home or self-care (01) ==
LOC: CHSLAB 10:19
PROVIDERS: PCP Family Medicine; Visit Provider Family Medicine
DX: R94.6 Abnormal results of thyroid function studies (principal); E11.21 Type 2 diabetes mellitus with diabetic nephropathy; E78.2 Mixed hyperlipidemia
CPT/HCPCS: 36415; 80048; 80061; 83036; 84439; 84443; 85025

== ENCOUNTER 2023-06-02 10:20 | Outpatient (CLI) | payer MEDICARE, SELFPAY ==
[2023-06-02 10:35] LABS: Basophils Absolute Auto 0.06 K/mm3 (0.00-0.10); Basophils Percent Auto 0.7 % (0.0-1.0); Eosinophils Absolute Auto 0.22 K/mm3 (0.02-0.50); Eosinophils Percent Auto 2.4 % (1.0-6.0); Hematocrit 42.8 % (35.0-42.0); Hemoglobin 13.8 g/dL (11.7-13.8); Immature Granulocyte Absolute 0.04 K/mm3 (0.00-0.00); Immature Granulocyte Percent A 0.4 % (0.0-0.0); Lymphocytes Absolute Auto 2.61 K/mm3 (1.10-4.50); Lymphocytes Percent Auto 28.5 % (18.0-42.0); Mean Corpuscular HGB Conc 32.2 g/dL (32.0-36.0); Mean Corpuscular Hemoglobin 29.6 pg (27.0-31.0); Mean Corpuscular Volume 91.8 fL (78.0-102.0); Mean Platelet Volume 12.2 fl (9.2-11.8); Monocytes Percent Auto 9.8 % (2.0-11.0); Neutrophils Absolute Auto 5.3 K/mm3 (1.7-7.2); Neutrophils Percent Auto 58.2 % (50.0-70.0); Platelet Count Result 131 K/mm3 (150-420); Red Blood Count 4.66 M/mm3 (4.20-5.40); Red Cell Distribution Width 14.1 % (11.6-14.4); White Blood Count 9.2 K/mm3 (4.8-10.8)
[2023-06-02 10:46] LABS: Hemoglobin A1C 8.5 % (<5.7)
[2023-06-02 11:05] LABS: Alanine Aminotransferase 19 U/L (14-59); Albumin Level 3.5 g/dL (3.4-5.0); Alkaline Phosphatase 78 U/L (46-116); Anion Gap 6 mmol/L (8-16); Aspartate Amino Transferase 29 U/L (15-37); Bilirubin,Total 0.7 mg/dL (0.00-1.00); Blood Urea Nitrogen 14 mg/dL (7-18); Calcium 9.2 mg/dL (8.5-10.1); Carbon Dioxide 31 mmol/L (21-32); Chloride 102 mmol/L (98-108); Estimated Glomerular Filt Rate > 60; Glucose 149 mg/dL (70-99); Osmolality Calculated 291 mOsm/kg (285-295); Potassium 4.2 mmol/L (3.5-5.1); Sodium 139 mmol/L (136-145); Total Protein 6.2 g/dL (6.4-8.2)
== END 2023-06-02 10:21 | disposition home or self-care (01) ==
LOC: CHSLAB 10:24
PROVIDERS: PCP Family Medicine; Visit Provider Family Medicine
DX: E11.21 Type 2 diabetes mellitus with diabetic nephropathy (principal)
CPT/HCPCS: 36415; 80053; 83036; 85025

== ENCOUNTER 2023-06-17 13:45 | Outpatient (CLI) | payer MEDICARE, SELFPAY ==
--- NOTE | ~2023-06-17 | XR_ITS ---
Right elbow Technique: AP, oblique, and lateral views were obtained. Clinical History: Pain Findings: No acute fracture or dislocation is seen. Osseous alignment is anatomic. Joint spaces are p reserved. There is no displacement of the fat pads, and soft tissues are unremarkable. Impression: Unremarkable radiographs. Reviewed, dictated and finalized at [facility]. 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
[2023-06-17 14:09] LABS: Basophils Absolute Auto 0.08 K/mm3 (0.00-0.10); Eosinophils Absolute Auto 0.18 K/mm3 (0.02-0.50); Eosinophils Percent Auto 2.2 % (1.0-6.0); Hematocrit 42.7 % (35.0-42.0); Hemoglobin 13.6 g/dL (11.7-13.8); Immature Granulocyte Absolute 0.03 K/mm3 (0.00-0.00); Immature Granulocyte Percent A 0.4 % (0.0-0.0); Lymphocytes Absolute Auto 2.49 K/mm3 (1.10-4.50); Lymphocytes Percent Auto 29.8 % (18.0-42.0); Mean Corpuscular HGB Conc 31.9 g/dL (32.0-36.0); Mean Corpuscular Hemoglobin 29.3 pg (27.0-31.0); Mean Platelet Volume 11.8 fl (9.2-11.8); Monocytes Percent Auto 8.4 % (2.0-11.0); Neutrophils Absolute Auto 4.9 K/mm3 (1.7-7.2); Neutrophils Percent Auto 58.2 % (50.0-70.0); Platelet Count Result 164 K/mm3 (150-420); Red Blood Count 4.64 M/mm3 (4.20-5.40); Red Cell Distribution Width 14.1 % (11.6-14.4); White Blood Count 8.4 K/mm3 (4.8-10.8)
[2023-06-17 14:24] LABS: Partial Thromboplastin Time 24.8 SEC (23.90-30.70); Prothrombin Time 10.6 Seconds (9.50-12.10)
== END 2023-06-17 13:46 | disposition home or self-care (01) ==
LOC: CHSLAB 13:48
PROVIDERS: PCP Family Medicine; Visit Provider Family Medicine
DX: T14.8XXA Other injury of unspecified body region, initial encounter (principal); M25.521 Pain in right elbow
CPT/HCPCS: 36415; 73080; 85025; 85610; 85730

== ENCOUNTER 2023-09-02 09:22 | Outpatient (CLI) | payer MEDICARE, SELFPAY ==
[2023-09-02 09:45] LABS: Basophils Absolute Auto 0.06 K/mm3 (0.00-0.10); Basophils Percent Auto 0.7 % (0.0-1.0); Eosinophils Absolute Auto 0.22 K/mm3 (0.02-0.50); Eosinophils Percent Auto 2.7 % (1.0-6.0); Hematocrit 41.8 % (35.0-42.0); Hemoglobin 13.8 g/dL (11.7-13.8); Immature Granulocyte Absolute 0.04 K/mm3 (0.00-0.00); Immature Granulocyte Percent A 0.5 % (0.0-0.0); Lymphocytes Absolute Auto 2.28 K/mm3 (1.10-4.50); Lymphocytes Percent Auto 27.8 % (18.0-42.0); Mean Corpuscular Hemoglobin 29.7 pg (27.0-31.0); Mean Corpuscular Volume 90.1 fL (78.0-102.0); Monocytes Absolute Auto 0.88 K/mm3 (0.10-0.90); Monocytes Percent Auto 10.7 % (2.0-11.0); Neutrophils Absolute Auto 4.7 K/mm3 (1.7-7.2); Neutrophils Percent Auto 57.6 % (50.0-70.0); Platelet Count Result 129 K/mm3 (150-420); Red Blood Count 4.64 M/mm3 (4.20-5.40); Red Cell Distribution Width 13.6 % (11.6-14.4); White Blood Count 8.2 K/mm3 (4.8-10.8)
[2023-09-02 09:53] LABS: Creatinine Urine 80.77 mg/dL (40-278); MALB Creatinine Ratio 19.8 mg/g (0-30)
[2023-09-02 10:10] LABS: Hemoglobin A1C 8.4 % (<5.7)
[2023-09-02 10:56] LABS: Alanine Aminotransferase 23 U/L (14-59); Albumin Level 3.4 g/dL (3.4-5.0); Alkaline Phosphatase 69 U/L (46-116); Anion Gap 8 mmol/L (8-16); Aspartate Amino Transferase 14 U/L (15-37); Bilirubin,Total 0.7 mg/dL (0.00-1.00); Blood Urea Nitrogen 14 mg/dL (7-18); Calcium 9.1 mg/dL (8.5-10.1); Carbon Dioxide 28 mmol/L (21-32); Chloride 103 mmol/L (98-108); Estimated Glomerular Filt Rate > 60; Free T4 Free Thyroxine 1.03 ng/dL (0.76-1.46); Glucose 154 mg/dL (70-99); Osmolality Calculated 291 mOsm/kg (285-295); Potassium 4.3 mmol/L (3.5-5.1); Sodium 139 mmol/L (136-145); Thyroid Stimulating Hormone 5.32 uIU/mL (0.36-3.74); Total Protein 5.9 g/dL (6.4-8.2)
== END 2023-09-02 09:23 | disposition home or self-care (01) ==
LOC: CHSLAB 09:24
PROVIDERS: PCP Family Medicine; Visit Provider Family Medicine
DX: E11.21 Type 2 diabetes mellitus with diabetic nephropathy (principal); R94.6 Abnormal results of thyroid function studies; I10 Essential (primary) hypertension
CPT/HCPCS: 36415; 80053; 82043; 83036; 84439; 84443; 85025

== ENCOUNTER 2023-10-05 07:50 | Emergency (ER) | payer MEDICARE, SELFPAY ==
--- NOTE | ~2023-10-05 | XR_ITS ---
EXAMINATION: XR foot RT min 3V DATE: 10/05/2023 08:32 INDICATION: Right foot injury and pain. TECHNIQUE: 4 views of right foot were obtained. COMPARISON: None. FINDINGS: There is dorsiflexion of the metatarsophalangeal joints. No fracture. There is mild osteoar thritis of first metatarsophalangeal joint and some of the interphalangeal joints and midfoot joints. There is moderate osteoarthritis of first interphalangeal joint. There are enthesophytes at the post erior and plantar aspects of calcaneal tuberosity. IMPRESSION: 1. Polyarticular osteoarthritis. Reviewed, dictated and finalized at location A.
--- NOTE | ~2023-10-05 | XR_ITS ---
EXAMINATION: XR ankle RT min 3V DATE: 10/05/2023 08:32 INDICATION: Right ankle injury and pain. TECHNIQUE: 4 views of right ankle were obtained. COMPARISON: None. FINDINGS: Bone alignment is normal. No fracture. There is mild midfoot osteoarthritis. There are enth esophytes at the posterior and plantar aspects of calcaneal tuberosity. Ankle soft tissue swelling is noted. IMPRESSION: 1. No fracture. Reviewed, dictated and finalized at location A. IMPRESSION: 1. No fracture.
[2023-10-05 07:51] VITALS: BP 167/50; PULSE 68; RESP 18; TEMP 36.4; O2SAT 98
--- NOTE | 2023-10-05 08:09 | ED.LOWEXIN ---
HPI - Extremity Injury (Lower) General Chief Complaint: Extremity Injury, Lower Stated Complaint: R foot pain Time Seen by Provider: 10/05/23 07:54 Source: patient Mode of arrival: ambulatory Limitations: no limitations History of Present Illness HPI Narrative: Patient is an 83-year-old female with a right ankle and foot pain after bowling this past few days. Her right knee gave out and she twisted her right ankle and foot. MD complaint: ankle injury ( Right) and foot injury ( right) Onset (ago): day(s) (4) Injury: Right: ankle and foot Type of Injury: inversion Place: other ( bowling alley) Severity: moderate Severity scale (1-10): 5 Relieving factors: nothing Exacerbating factors: weight bearing, movement and palpation Context: walking ( bowling) Associated symptoms: swelling and able to partially bear weight Other symptoms: none Related Data Home Medications Medication Instructions Recorded Confirmed aspirin 81 mg tablet,delayed 81 mg PO DAILY 09/30/21 10/05/23 release benazepril 40 mg tablet 60 mg PO DAILY 09/30/21 10/05/23 docusate sodium 50 mg capsule 100 mg PO DAILY 09/30/21 10/05/23 (Colace Clear) furosemide 40 mg tablet 60 mg PO QAM 09/30/21 10/05/23 insulin glargine 100 unit/mL (3 30 unit subcut QPM 09/30/21 10/05/23 mL) subcutaneous pen (Lantus Solostar U-100 Insulin) insulin lispro 100 unit/mL 1 sliding scale dose subcut 09/30/21 10/05/23 subcutaneous cartridge (Humalog USEASDIRECTD U-100 Insulin) metoprolol succinate 100 mg 100 mg PO BID 09/30/21 10/05/23 tablet,extended release 24 hr potassium chloride 20 mEq 20 meq PO DAILY 09/30/21 10/05/23 tablet,extended release(part/cryst) (Klor-Con M) rosuvastatin 40 mg tablet (Crestor) 40 mg PO HS 09/30/21 10/05/23 cholecalciferol (vitamin D3) 50 50 mcg PO DAILY 01/22/23 10/05/23 mcg (2,000 unit) tablet (Vitamin D3) Allergies Allergy/AdvReac Type Severity Reaction Status Date / Time pentazocine Allergy Unknown ALMOST Verified 10/05/23 08:23 FAINTED amoxicillin Allergy Loss of Verified 10/05/23 08:23 Consciousness Review of Systems Review of Systems: All systems reviewed & are unremarkable except as noted in HPI and below Constitutional: Constitutional: Reports no additional constitutional complaints Eyes: Eyes: Reports no additional eye complaints ENT: Reports system reviewed and no additional complaints, except as documented Cardiovascular: Cardiovascular: Reports no additional cardiovascular complaints Respiratory: Respiratory: Reports no additional respiratory complaints Gastrointestinal: Gastrointestinal: Reports no additional gastrointestinal complaints Genitourinary: Genitourinary: Reports no additional female genitourinary complaints Musculoskeletal: Musculoskeletal: Reports no additional musculoskeletal complaints Integumentary/Breasts: Skin/Breast: Reports system reviewed and no additional complaints, except as docu Neurologic: Reports system reviewed and no additional complaints, except as documented Psychiatric: Psychiatric: Reports no additional psychiatric complaints Endocrine: Endocrine: Reports no additional endocrine complaints Hematologic/Lymphatic: Hematologic/Lymphatic: Reports no additional hematologic/lymphatic complaints Allergic/Immunologic: Allergic/Immunologic: Reports no additional allergic/immunologic complaints PMFSH Past Medical History Medical History BMI greater than 40 Diabetes High cholesterol Hypertension Left knee DJD Right knee pain Surgical History Surgical History History of total knee arthroplasty Family History Family History Other Diabetes mellitus Hypertension Social History Social History Smoking status: Former smoker
[2023-10-05] MEDS: KETOROLAC (*BKC) 60 MG/2 ML VIAL IM (08:27)
[2023-10-05 09:12] VITALS: BP 164/71; PULSE 59; RESP 20; TEMP 36.6; O2SAT 94
== END 2023-10-05 09:15 | disposition home or self-care (01) ==
PROVIDERS: Emergency Provider Emergency Medicine; PCP Family Medicine
DX: S93.601A Unspecified sprain of right foot, initial encounter (principal); X50.1XXA Overexertion from prolonged static or awkward postures, initial encounter; E11.9 Type 2 diabetes mellitus without complications; I10 Essential (primary) hypertension; Z96.659 Presence of unspecified artificial knee joint
CPT/HCPCS: 73610; 73630; 96372; 99283; J1885; L4350

== ENCOUNTER 2023-10-19 11:00 | Outpatient (CLI) | payer MEDICARE, SELFPAY ==
--- NOTE | ~2023-10-19 | XR_ITS ---
EXAMINATION: XR foot RT min 3V DATE: 10/19/2023 11:32 INDICATION: Right midfoot pain. TECHNIQUE: 4 views of right foot were obtained. COMPARISON: Right foot radiographs 10/05/2023 FINDINGS: Bone alignment is normal. No fracture. There is mild osteoarthritis of many of the midfoot joints and interphalangeal joints. There is moderate osteoarthritis of first interphalangeal joint. T here are enthesophytes at the posterior and plantar aspects of calcaneal tuberosity. IMPRESSION: 1. Polyarticular osteoarthritis. Reviewed, dictated and finalized at location E.
== END 2023-10-19 11:01 | disposition home or self-care (01) ==
LOC: CHSIMG 11:02
PROVIDERS: PCP Family Medicine; Visit Provider Family Medicine
DX: M25.571 Pain in right ankle and joints of right foot (principal); M19.071 Primary osteoarthritis, right ankle and foot
CPT/HCPCS: 73630

== ENCOUNTER 2023-12-07 10:02 | Outpatient (CLI) | payer MEDICARE, SELFPAY ==
[2023-12-07 10:58] LABS: Basophils Absolute Auto 0.09 K/mm3 (0.00-0.10); Basophils Percent Auto 1.2 % (0.0-1.0); Eosinophils Absolute Auto 0.22 K/mm3 (0.02-0.50); Eosinophils Percent Auto 3.1 % (1.0-6.0); Hematocrit 46.9 % (35.0-42.0); Hemoglobin 13.9 g/dL (11.7-13.8); Immature Granulocyte Absolute 0.02 K/mm3 (0.00-0.00); Immature Granulocyte Percent A 0.3 % (0.0-0.0); Lymphocytes Absolute Auto 2.45 K/mm3 (1.10-4.50); Mean Corpuscular HGB Conc 29.6 g/dL (32-36); Mean Corpuscular Hemoglobin 29.1 pg (27.0-31.0); Mean Corpuscular Volume 98.1 fL (78.0-102.0); Monocytes Percent Auto 11.1 % (2.0-11.0); Neutrophils Absolute Auto 3.63 K/mm3 (1.70-7.20); Neutrophils Percent Auto 50.3 % (50.0-70.0); Platelet Count Result 135 K/mm3 (150-420); Red Blood Count 4.78 M/mm3 (4.20-5.40); White Blood Count 7.2 K/mm3 (4.8-10.8)
[2023-12-07 11:59] LABS: Anion Gap 9 mmol/L (4-12); Blood Urea Nitrogen 22 mg/dL (7-18); Carbon Dioxide 28 mmol/L (21-32); Chloride 102 mmol/L (98-108); Potassium 4.7 mmol/L (3.5-5.1); Sodium 139 mmol/L (136-145)
[2023-12-07 12:00] LABS: Alanine Aminotransferase 19 U/L (14-59); Albumin Level 3.5 g/dL (3.4-5.0); Alkaline Phosphatase 71 U/L (46-116); Aspartate Amino Transferase 20 U/L (15-37); Bilirubin,Total 0.7 mg/dL (0.00-1.00); Calcium 9.4 mg/dL (8.5-10.1); Estimated Glomerular Filt Rate 58; Free T4 Free Thyroxine 0.98 ng/dL (0.76-1.46); Glucose 158 mg/dL (70-99); Osmolality Calculated 294 mOsm/kg (285-295); Thyroid Stimulating Hormone 4.78 uIU/mL (0.36-3.74); Total Protein 6.2 g/dL (6.4-8.2)
[2023-12-08 14:43] LABS: Hemoglobin A1C 8.9 % (<5.7)
[2023-12-11 13:58] LABS: Thyroid Peroxidase Antibodies <1 IU/mL (<9)
== END 2023-12-07 10:03 | disposition home or self-care (01) ==
LOC: CHSLAB 10:03
PROVIDERS: PCP Family Medicine; Visit Provider Family Medicine
DX: E11.21 Type 2 diabetes mellitus with diabetic nephropathy (principal); R94.6 Abnormal results of thyroid function studies; E11.9 Type 2 diabetes mellitus without complications
CPT/HCPCS: 36415; 80053; 83036; 84439; 84443; 85025; 86376

== ENCOUNTER 2024-03-17 09:34 | Outpatient (CLI) | payer MEDICARE, SELFPAY ==
[2024-03-17 09:52] LABS: Basophils Absolute Auto 0.07 K/mm3 (0.00-0.10); Basophils Percent Auto 0.9 % (0.0-1.0); Eosinophils Absolute Auto 0.22 K/mm3 (0.02-0.50); Eosinophils Percent Auto 2.8 % (1.0-6.0); Hematocrit 39.7 % (35.0-42.0); Immature Granulocyte Absolute 0.04 K/mm3 (0.00-0.00); Immature Granulocyte Percent A 0.5 % (0.0-0.0); Lymphocytes Absolute Auto 2.34 K/mm3 (1.10-4.50); Mean Corpuscular HGB Conc 32.7 g/dL (32-36); Mean Corpuscular Hemoglobin 29.7 pg (27.0-31.0); Mean Corpuscular Volume 90.6 fL (78.0-102.0); Mean Platelet Volume 12.1 fl (9.2-11.8); Monocytes Absolute Auto 0.84 K/mm3 (0.10-0.90); Monocytes Percent Auto 10.8 % (2.0-11.0); Neutrophils Absolute Auto 4.28 K/mm3 (1.70-7.20); Platelet Count Result 125 K/mm3 (150-420); Red Blood Count 4.38 M/mm3 (4.20-5.40); Red Cell Distribution Width 14.1 % (11.6-14.4); White Blood Count 7.8 K/mm3 (4.8-10.8)
[2024-03-17 10:40] LABS: Alanine Aminotransferase 19 U/L (14-59); Albumin Level 3.4 g/dL (3.4-5.0); Alkaline Phosphatase 79 U/L (46-116); Anion Gap 5 mmol/L (4-12); Aspartate Amino Transferase 15 U/L (15-37); Bilirubin,Total 0.6 mg/dL (0.00-1.00); Blood Urea Nitrogen 18 mg/dL (7-18); Calcium 9.2 mg/dL (8.5-10.1); Carbon Dioxide 30 mmol/L (21-32); Chloride 104 mmol/L (98-108); Estimated Glomerular Filt Rate 51; Free T4 Free Thyroxine 1.05 ng/dL (0.76-1.46); Glucose 134 mg/dL (70-99); Osmolality Calculated 291 mOsm/kg (285-295); Sodium 139 mmol/L (136-145); Thyroid Stimulating Hormone 4.59 uIU/mL (0.36-3.74); Total Protein 5.9 g/dL (6.4-8.2)
== END 2024-03-17 09:35 | disposition home or self-care (01) ==
LOC: CHSLAB 09:37
PROVIDERS: PCP Family Medicine; Visit Provider Family Medicine
DX: E11.21 Type 2 diabetes mellitus with diabetic nephropathy (principal); R94.6 Abnormal results of thyroid function studies
CPT/HCPCS: 36415; 80053; 83036; 84439; 84443; 85025

== ENCOUNTER 2024-07-11 09:27 | Outpatient (CLI) | payer MEDICARE, SELFPAY ==
[2024-07-11 10:10] LABS: Basophils Absolute Auto 0.07 K/mm3 (0.00-0.10); Basophils Percent Auto 1.1 % (0.0-1.0); Eosinophils Absolute Auto 0.18 K/mm3 (0.02-0.50); Eosinophils Percent Auto 2.7 % (1.0-6.0); Hematocrit 39.9 % (35.0-42.0); Hemoglobin 12.9 g/dL (11.7-13.8); Immature Granulocyte Absolute 0.02 K/mm3 (0.00-0.00); Immature Granulocyte Percent A 0.3 % (0.0-0.0); Lymphocytes Absolute Auto 1.93 K/mm3 (1.10-4.50); Mean Corpuscular HGB Conc 32.3 g/dL (32-36); Mean Corpuscular Hemoglobin 29.2 pg (27.0-31.0); Mean Corpuscular Volume 90.3 fL (78.0-102.0); Mean Platelet Volume 12.1 fl (9.2-11.8); Monocytes Absolute Auto 0.64 K/mm3 (0.10-0.90); Monocytes Percent Auto 9.6 % (2.0-11.0); Neutrophils Absolute Auto 3.81 K/mm3 (1.70-7.20); Neutrophils Percent Auto 57.3 % (50.0-70.0); Platelet Count Result 135 K/mm3 (150-420); Red Blood Count 4.42 M/mm3 (4.20-5.40); Red Cell Distribution Width 13.6 % (11.6-14.4); White Blood Count 6.7 K/mm3 (4.8-10.8)
[2024-07-11 10:31] LABS: Hemoglobin A1C 8.4 % (<5.7)
[2024-07-11 10:57] LABS: Alanine Aminotransferase 16 U/L (14-59); Albumin Level 3.5 g/dL (3.4-5.0); Alkaline Phosphatase 71 U/L (46-116); Anion Gap 8 mmol/L (4-12); Aspartate Amino Transferase 11 U/L (15-37); Bilirubin,Total 0.6 mg/dL (0.00-1.00); Blood Urea Nitrogen 24 mg/dL (7-18); Calcium 9.3 mg/dL (8.5-10.1); Carbon Dioxide 29 mmol/L (21-32); Chloride 104 mmol/L (98-108); Cholesterol 138 mg/dL (0-200); Estimated Glomerular Filt Rate > 60; Glucose 127 mg/dL (70-99); HDL Direct 60 mg/dL (40-60); LDL Cholesterol Calculated 59 mg/dL (<130); Osmolality Calculated 298 mOsm/kg (285-295); Potassium 4.7 mmol/L (3.5-5.1); Sodium 141 mmol/L (136-145); Thyroid Stimulating Hormone 5.61 uIU/mL (0.36-3.74); Total Protein 5.9 g/dL (6.4-8.2); Triglycerides 96 mg/dL (0-150)
== END 2024-07-11 09:28 | disposition home or self-care (01) ==
LOC: CHSLAB 09:30
PROVIDERS: PCP Family Medicine; Visit Provider Family Medicine
DX: I10 Essential (primary) hypertension (principal); R94.6 Abnormal results of thyroid function studies; E11.21 Type 2 diabetes mellitus with diabetic nephropathy
CPT/HCPCS: 36415; 80053; 80061; 83036; 84439; 84443; 85025

== ENCOUNTER 2024-11-16 10:30 | Outpatient (CLI) | payer MEDICARE, SELFPAY ==
[2024-11-16 10:47] LABS: Basophils Absolute Auto 0.08 K/mm3 (0.00-0.10); Eosinophils Absolute Auto 0.26 K/mm3 (0.02-0.50); Eosinophils Percent Auto 3.2 % (1.0-6.0); Immature Granulocyte Absolute 0.05 K/mm3 (0.00-0.00); Immature Granulocyte Percent A 0.6 % (0.0-0.0); Lymphocytes Percent Auto 28.6 % (18.0-42.0); Mean Corpuscular HGB Conc 32.6 g/dL (32-36); Mean Corpuscular Hemoglobin 29.4 pg (27.0-31.0); Mean Corpuscular Volume 90.1 fL (78.0-102.0); Monocytes Absolute Auto 0.84 K/mm3 (0.10-0.90); Monocytes Percent Auto 10.4 % (2.0-11.0); Neutrophils Absolute Auto 4.52 K/mm3 (1.70-7.20); Neutrophils Percent Auto 56.2 % (50.0-70.0); Platelet Count Result 145 K/mm3 (150-420); Red Blood Count 4.77 M/mm3 (4.20-5.40); Red Cell Distribution Width 13.7 % (11.6-14.4); White Blood Count 8.1 K/mm3 (4.8-10.8)
[2024-11-16 10:58] LABS: Hemoglobin A1C 8.3 % (<5.7)
--- OUTSIDE RECORDS SUMMARY | 2024-11-16 11:07 | XMS_ITS | Continuity of Care Document ---
Author Organization [employer] [facility] [place] Address [address] [facility] [address] [place] [id number] Phone Care Team Providers Care Deputy [employer] Name Role Phone Yasmeen Sosa OD Unavailable Unavailable Allergies, Adverse Reactions, Alerts Substance Reaction Status Criticality PENTAZOCINE LACTATE Active No Infor mation Medications Medication Instructions Dosage Effective Dates (start - stop) Status Comments Mounjaro 5 mg/0.5 mL subcutaneous pen injector inject (5MG) by subcutaneous route every week 5 MG - Active doxazosin 1 mg tablet take 1 tablet by o ral route every day 1 MG - Active Humalog U-100 Insulin 100 unit/mL subcutaneous solution take one tablet daily - Active Lantus U-100 Insulin 100 unit/mL subcutaneous solution take one tablet daily - Active Vitamin D3 50 mcg (2,000 unit) capsule take one tablet daily - Active benazepril 40 mg tablet take 1 tablet by oral route every day 40 MG - Active Klor-Con M20 mEq tablet,extended release take 1 tablet by oral route every day with food 20 MEQ - Active Metoprolol Succinate ER 50 mg 24 hr Tab take 1 tablet (50MG) by ORAL route every day 50 MG - Active Glyburide Micronized 6 mg Tab take 1 tablet (6MG) by ORAL route every day in the morning with food 6 MG - Active Furosemide 40 mg Tab take 1 tablet (40MG ) by ORAL route every day 40 MG - Active Plavix 75 mg Tab take 1 tablet (75MG) by ORAL route every day 75 MG - Active Crestor 40 mg Tab take 1 tablet (40MG) by ORAL route every day 40 MG - Active Aspirin 325 mg Tab take 1 tablet (325MG ) by ORAL route every day 325 MG - Active Procedures Procedure Date Refraction No Charge Optomap Fundus Photos 025 Office/outpatient Visit, Est Fundus Photography W/ Report Eye Exam & Treatment No Charge Refraction No Charge Optomap Fundus Photos 022 Eye Exam & Treatment Fundus Photography W/ Report Eye Exam, New Patient Refraction Eye Exam & Treatment Office/outpatient Visit, Est SCODI, Retina Office/outpatient Visit, Est Refraction Post-op Follow-up Visit Post-op Follow-up Visit Remove Cataract, Post Op Care 6 Remove Cataract, Insert Lens,Comanaged J IOLMaster-Professional No Charge Refraction Post-op Follow-up Visit Post-op Follow-up Visit Remove Cataract, Post Op Care 5 Remove Cataract, Insert Lens,Comanaged D IOLMaster-Professional No Charge Refraction IOLMaster IOLMaster SCODI, Retina No Charge Orbscan Eye Exam & Treatment Eye Exam & Treatment Dilated Retinal Exam W Interpretation Ma No Evidence Of Retinopathy In Prior Year Eye Exam & Treatment Eye Exam & Treatment Dilated Retinal Exam W Interpretation Ma No Evidence Of Retinopathy In Prior Year Eye Exam & Treatment Dilated Retinal Exam W Interpretation Fe No Evidence Of Retinopathy In Prior Year Eye Exam & Treatment Dilated Retinal Exam W Interpretation Oc No Evidence Of Retinopathy In Prior Year Eye Exam & Treatment Dilated Retinal Exam W Interpretation Oc No Evidence Of Retinopathy In Prior Year Eye Exam & Treatment Advance Directives Directive Yes / No Effective Date File Name Other Directive No N/A N/A WARNING:The information contained in this section is historical and is provided for information only and does not constitute a legal document or any assurance that the information is still accurate. Please verify the information with the cosme of the legal document before using it for clinical purposes. Encounters Encounter Description Practice Location Reason(s) For Visit Diagnoses Date Provider Providers Copied on Encounter Office/outpa tient Visit, Est [facility], [address] [place] [address] [address], [place], [place], [address], tel:[phone] SEC [place] MD Professional diabetic eye exam (chief complaint) Drusen of macula of both eyesType 2 diabetes mellitus without complications 5 Ian OD Yasmeen. [address] [place] [address] [address], [address], [place], [place], [address], [place]. tel:[phone] Ruby Campa MD.Referri Provider: Omero Singh, [address] [facility], [place], [address] . tel:[phone] [facility], [address], [place], [place], [address], [place] tel:[phone] SEC [place] MD Professional Complete Exam (chief complaint) Type 2 diab with mild nonp rtnop without mclr edema, r eyePseudophaki a of both eyesOther secondary cataract, bilateralDry eye syndrome of left lacrimal gland 3 Emigdio Jamil. [address], [facility] [address], [place], [place], [address], [place]. tel:[phone] Ruby Campa MD.Referri ng Provider: Omero Singh, [address] [facility], [place], [address] . tel:[phone] [facility], [address] [place] [address] [address], [place], [place], [address], [place] tel:[phone] SEC Gian [place] Professional Diabetic eye exam (chief complaint) Pseudophakia of both eyesType 2 diabetes mellitus without complicationsO ther secondary cataract, bilateralDry eye syndrome of left lacrimal gland Sep-1 - 2 Emigdio Jamil. [address], [address], [place], [place], [address], [place]. tel:[phone] Ruby Campa MD.Referri ng Provider: Omero Singh, [address], [place], [address] . tel:[phone] [facility], [address] [place] [address] [address], [place], [place], [address], [place] tel:[phone] SEC [place] Professional Complete Exam (chief complaint) Pseudophakia of both eyesType 2 diabetes mellitus without complicationsC yst of right lower eyelidOther secondary cataract, left eyeVitreous degeneration, left eyeRPE mottling of macula Sep-0 1 Emigdio Jamil. [address], [address], [place], [place], [address], [place]. tel:[phone] Ruby Campa MD.Referri ng Provider: Omero Singh, [address], [place], [address] . tel:[phone] [facility], [address] [place] [address] [address], [place], [place], [address], [place] tel:[phone] SEC [place] Professional Complete Exam (chief complaint) Other secondary cataract, left eyeType 2 diabetes mellitus without complicationsP resence of pseudophakia Aug-2 0-201 8 Emigdio Jamil. [address], [address], [place], [place], [address], [place]. tel:[phone] Referring Provider: Peter Blackman [address], [place], [address] . tel:[phone] Office/outpa tient Visit, [facility], [address], [place], [place], [address], [place] tel:[phone] SEC Gian HUGGINS Professional IOL check (chief complaint) No Information 6 Emigdio Jamil. [address], [place], [place], [address], [place]. tel:[phone] Referring Provider: Peter Blackman, [address] [facility] [address], [place], [address] . tel:[phone] Office/outpa tient Visit, [facility], [address] [place] [address] [address], [place], [place], [address], [place] tel:[phone] SEC Gian HUGGINS Professional 4 month DFE (chief complaint) No Information 6 Emigdio Jamil. [address], [place], [place], [address], [place]. tel:[phone] Referring Provider: Peter Blackman, [address], [place], [address] . tel:[phone] [facility], [address] [place] [address] [address], [place], [place], [address], [place] tel:[phone] SEC Gian HUGGINS Professional 1 month post op (chief complaint) No Information 6 Emigdio Jamil. [address], [address], [place], [place], [address], [place]. tel:[phone] Referring Provider: Peter Blackman, [address], [place], [address] . tel:[phone] [facility], [address] [place] [address] [address], [place], [place], [address], [place] tel:[phone] SEC Gian HUGGINS Professional F/u exam, postop (chief complaint) No Information 6 Emigdio Jamil. [address], [address] [place], [address], . tel:[phone] Referring Provider: Peter Blackman, [address], [place], [address] . tel:[phone] [facility], [address] [place] [address] [address], [place], [place], [address], tel:[phone] SEC Gian HUGGINS Professional 1 day PCIOL OD (chief complaint) No Information 6 Emigdio Jamil. [address] [facility], [address] [place], [address], . tel:[phone] Referring Provider: Peter Blackman, [address], [place], [address] . tel:[phone] [facility], [address], [place], [place], [address], [place] tel:[phone] [facility] No Information 6 Emigdio Jamil. [address], [address] [place], [address], [place]. tel:[phone] Referring Provider: Peter Blackman, [address] [place] [place], [address] . tel:[phone] [facility], [address], [place], [place], [address], tel:[phone] SEC Tj Ashby No Information 6 Emigdio Jamil. [address], [address] [place], [address], [place]. tel:[phone] Referring Provider: Peter Blackman, [address], [place], [address] . tel:[phone] [facility], [address], [place], [place], [address], [phone] SEC Gian [place] Professional F/u exam, postop (chief complaint) No Information Santhosh-0 6-201 6 Jhoanswathi Green. [address], [place], [place], [address], [place]. tel:[phone] Referring Provider: Peter Jhoanswathi Blackman, [address] [facility] [address], [place], [address] . tel:[phone] [facility], [address] [place] [address] [address], [place], [place], [address], [place] tel:[phone] SEC [place] Professional 1 week P/O OS (chief complaint) No Information May-1 5-201 5 Emigdio Jamil. [address] [facility], [address] [place], [address], [place]. tel:[phone] Referring Provider: Peter Blackman, [address], [place], [address] . tel:[phone] [facility], [address] [place] [address] [address], [place], [place], [address], [place] tel:[phone] SEC [place] Professional 1 day post OP (chief complaint) No Information May-0 9-201 5 Emigdio Jamil. [address], [address] [place], [address], [place]. tel:[phone] Referring Provider: Peter Stonecintia Blackman, [address], [place], [address] . tel:[phone] [facility], [address] [place] [address] [address], [place], [place], [address], [place] tel:[phone] [facility] [place] No Information Dec-0 8- 5 Emigdio Jamil. [address] [facility], [address] [place], [address], . tel:[phone] Referring Provider: Peter Blackman, [address] [facility] [place], [address] . tel:[phone] [facility], [address], [place], [place], [address], [place] tel:[phone] SEC [facility] No Information Dec-0 5 Emigdio Jamil. [address] [facility], [address] [place], [address], . tel:[phone] Referring Provider: Peter Blackman, [address] [facility] [place], [address] . tel:[phone] [facility], [address], [place], [place], [address], [place] tel:[phone] SEC [place] Professional No Information Dec-0 4- 5 Emigdio Jamil. [address] [facility], [facility] [place], [address], . tel:[phone] [facility], [address], [place], [place], [address], [place] tel:[phone] SEC [place] Professional blurry vision (chief complaint) No Information 3- 5 Emigdio Jamil. [address] [facility], [facility] [place], [address], [place]. tel:[phone] Referring Provider: Peter Blackman, [address] [facility], [address] . tel:[phone] [facility], [address], [place], [place], [address], [phone] SEC Gian HUGGINS Professional Diabetic eye exam (chief complaint) No Information 5 Sandra Green. [address] [facility], [address], [place], [place], [address], . tel:[phone] Referring Provider: Peter Blackman, [address] [facility] [address], [place], [address] . tel:[phone] [facility], [address], [place], [place], [address], tel:[phone] SEC Gian HUGGINS Professional No Information 4 Sandra Green. [address] [facility], [address] [place], [address], . tel:[phone] Referring Provider: Peter Blackman, [address] [facility] [address], [place], [address] . tel:[phone] [facility], [address], [place], [place], [address], tel:[phone] SEC Gian HUGGINS Professional No Information 3 Sandra Green. [address] [facility], [address] [place], [address], [place]. tel:[phone] Referring Provider: Peter Blackman, [address] [facility], [address] . tel:[phone] [facility], [address], [place], [place], [address], [phone] SEC Gian HUGGINS Professional No Information 3 Fay Jernigan. [address], [place], [address], [place]. tel:[phone] [facility], [address], [place], [place], [address], tel:[phone] SEC [place] JOSELUIS Professional No Information 5201 1 Wankcintia Green. [address], [address] [place], [address], . tel:[phone] [facility], [address], [place], [place], [address], tel:[phone] SEC [place] MD Professional No Information 1-200 9 Wankum Peter. [address], [address] [place], [address], . tel:[phone] [facility], [address], [place], [place], [address], tel: SEC Gian MD Professional No Information 0-200 8 Wankum Peter. [address], [address], [place], [place], [address], . tel:[phone] [facility], [address], [place], [place], [address], tel:[phone] SEC Gian HUGGINS Professional No Information 0-200 7 Wankum Peter. [address], [address] [place], [address], . tel:[phone] Family History Family Member Type Diagnosis Age At Onset Problem (finding) Family history of Diabe brenda mellitus Payers Payer name Insurance type Covered democrat ID Authortravisa sharon(s) [place] [id number] [facility] [id number] Social History Type Description Quantity Date Captured Comments Alcohol Use Details No Caffeine Use Details Tobacco Use Status Current non-smoker Smoking Status Never smoker Non-Smoking Tobacco Use Details : No Details Available : No Details Available Sex Female Chief Complaint And Reason For Visit From encounter dated '08/01/2024 09:00'. diabetic eye exam (chief complaint). Description: The 84 year old patient presents for a complete Type II diabetic exam ou. Patent is pseudo ou. BS 117 this am and last A1C was 8.5 and PCP treats DM.Patient recently started Mounjaro. Patient denies any changes in vision ou. Patient thinks she needs new glasses. Reason For Referral Reason For Referral No Information Plan Of Treatment Date Type Action Status Referral Ordered: Tiger Romero (related to Type 2 diabetes mellitus without complications) ordered Referral Referred To: Tigre Romero [address] [place], [place] [id number] Ordered: Referrals: Tigre Romero. Follow-up and Treat ordered Patient Education Dry Eyes: Care Instruct ions completed Patient Education Type 2 Diabetes: Care I nstructions completed History Of Present Illness Encounter Date Complaint History Of Prese nt Illness diabetic eye exam The 84 year ol d patient presents for a complete Type II diabetic exam ou. Patent is pseudo ou. BS 117 this am and last A1C was 8.5 and PCP treats DM. Patient recently started Mounjaro. Patient denies any changes in vision ou. Patient thinks she needs new glasses. Complete Exam The 82 year old patient presents for evaluation of Complete Exam in the right eye and left eye. 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 Pt reports sometimes gets blurry when her BS is low. Diabetic eye exam The 81 year ol d patient presents for evaluation of Diabetic eye exam in the right eye and left eye. Hx of PCIOL OU, PVD OS, and RPE Mottling OD. Patient states she has some difficulty reading and the left eye is slightly blurry. Patient is a Type 2 diab, BS checked this am @ 102, a1c 7.3, and PCP treats her BS. Complete Exam The 80 year old female presents for evaluation of Complete Exam in the right eye and left eye. Hx of CAT OU and PCO OS. Pt is IDDM II x 25 yrs, followed by PCP, pt reports BS was 113 today and A1C was 7.6 in August. Pt reports stable VA, OU, DV and NV, with gls, x 3 yrs. Pt reports she doesn't use any gtts, OU. Complete Exam The 77 year old female presents for evaluation of Complete Exam in the right eye and left eye. Insulin dependent type 2 dm, BS-89 @ 740am, A1C-7.8 in 07/16. Hx PCIOL OU, Diabetes no retinopathy. Pt not currently using any gtts. Pt states vision is pretty good, has not noticed any visual changes. Pt denies any new flasher, floaters, pain or discomfort at this time. IOL check The 76 year old female presents for a 6 month IOL ou check. Patient denies any changes in vision ou. Patient states eyes are doing good. 4 month DFE The 75 year old female presents for evaluation of 4 month DFE. Pt. states that her vision is doing great and is stable. Pt. denies any pain or discomfort at this time. Pt. is not currently taking any gtts. Pt. is IDDM II and states that her blood sugar was 175 this morning at 9am and 113 at 12 pm. 1 month post op The 75 year old female presents for a 1 month post op in the right eye. (phaco w/IOL) Patient has had both eyes done and would a new RX for glasses. Patient states VA is good snd she has finished all her post op gtts. F/u exam, postop The 75 year old female presents for a 1 week post op CE OD. Patient is using Pred, Diclofenac, and Vigamox OD. Patient states OD is doing good. 1 day PCIOL OD The 75 year old female presents for 1 day PO PCIOL OD. S/P PCIOL OU. Pt using Prednisolone QID OD, Diclo TID OD and Vigamox QID OD. Pt DM II insulin dependent. BS 118 at noon today. Pt states OD is feeling fine. No pain, irritation or discomfort OU. Post op instruction explained, understood and given to pt. F/u exam, postop The 75 year old female presents for a 1 month s/p CE OS. Patient states OS is doing great. Patient is using Pred bid OS. Patient wishes to proceed with CE OD because of blurry vision OD and patient notices difference between eyes. 1 week P/O OS The 75 year old female presents for a 1 week P/O in the left eye. (phaco w/IOL 06-05-2015) Patient states VA is great with OS. Still using gtts as directed. 1 day post OP The 75 year old female presents for evaluation of 1 day post OP in the right eye. Patient says she understands the post op instructions and has all her drops. Patient is using Vigamox, Pred, and diclofenac. Patient has no complaints. blurry vision The 75 year old female presents for a cataract evaluation ou. Patient c/o blurry vision and hard to read small print. Patient is a diabetic and BS was 124 this am. Diabetic eye exam The 74 year ol d female presents for a complete diabetic exam. Patient denies any changes in vision. Patient states BS was 106 this am. Functional Status Date Functional Assessmen t No Information Instructions Date Instruction Additional Infor sherri Impression/Plan Impression/Plan Impression/Plan Impression/Plan Rec good blood sugar control Rel ated to Type 2 diabetes mellitus without complications Impression/Plan Impression/Plan - Ty pe II Diabetes: No background diabetic retinopathy and no signs of neovascularization noted. Ocular and systemic benefits of good blood sugar control discussed with patient. Letter sent to Tigre Romero MD regarding today's exam findings. The vision and IOP are stable OU. Recommend patient return in 1 year or sooner with problems. Type 2 diabetes miriam itus without complication, with long-term current use of insulin - Rec good blood sugar control Related to Type 2 diabetes mellitus without complication, with long-term current use of insulin Type 2 diabetes miriam itus without complication, with long-term current use of insulin - Educational materials provided Related to Type 2 diabetes mellitus without complication, with long-term current use of insulin Type 2 diabetes miriam itus without complication, with long-term current use of insulin - Letter sent to PCP/Specialist Related to Type 2 diabetes mellitus without complication, with long-term current use of insulin Follow up - Return t o clinic in 1 year for complete exam Bilateral pseudophak ia - Educational material given Related to Bilateral pseudophakia Impression/Plan - Di abetes type II: no background retinopathy, no signs of neovascularization noted. Discussed ocular and systemic benefits of blood sugar control. DM letter sent to Dr Romero. Patient doing well with new eyeglasses. IOL's in good position. OCT mac indicates no macular edema. Return to clinic in 6 months for follow up or sooner with any problems. Follow up - Return i n 6 months with Omero Beal M.D. for follow up exam. Impression/Plan - 1 month s/p CE OD. Vision stable. IOP stable. No diabetic changes noted upon today's exam. Discussed glasses RX with patient. Patient was given new glasses RX today. Patient will finish the eye drop taper over the next few days. Patient will return in 4 months or sooner with problems. Follow up - 4 month DFE OU Impression/Plan - On e week PO s/p Phaco with IOL OD. IOL in good position; healing well. Patient advised they no longer need to wear the shield over the eye at bedtime. Medication instillation and post op instructions reviewed. Recommended patient hold off on bowling one more week. Patient will return in 3 weeks or sooner with problems. Follow up - RTC as scheduled Impression/Plan - On e Day PO s/p Phaco with IOL OD in good position. Patient healing well. Medication instillation, shield use and restrictions reviewed with patient. Return to clinic as scheduled or sooner with problems. Follow up - RTC as scheduled Follow up - Proceed with OD CE. Impression/Plan - On e month PO s/p Phaco with IOL OS. IOL in good position; healing well. Patient will use the last PO drop until it runs out and understands she no longer has any physical restrictions. Patient OK to proceed with OD CE. Follow up - RTC as scheduled Impression/Plan - On e week s/p phaco with IOL OS. IOL in good position; healing well. Medication instillation and post op instructions reviewed. Pt elects to continue wearing shield at bedtime. Discussed shadows in the left eye and symptoms of dysphotopsia. Will continue to monitor. RTC as scheduled or sooner if problems. Follow up - RTC as scheduled Impression/Plan - On e Day PO s/p Phaco with IOL OS in good position. Patient healing well. Medication instillation, sheild use and restrictions reviewed with patient. Return to clinic as scheduled or sooner with problems. Follow up - Schedule OS CE first, standard IOL for distance. Impression/Plan - Ty pe II Diabetes: No background diabetic retinopathy and no signs of neovascularization noted. Ocular and systemic benefits of good blood sugar control discussed with patient. Letter sent to Dr. Tigre Romero regarding today's macular findings. Cataract Diagnosis discussed in detail with patient. Discussed all risks, benefits and alternatives pertaining to cataract surgery. The procedure and recovery from cataract extraction were discussed. Recommend phacoemulsification with intraocular lens implant. Lifestyle lens options discussed. Discussed with patient that because she has Diabetes that she is not a good candidate for the multifocal IOL. Discussed the option of the Toric IOL, but she doesn't have enough astigmatism to be a good fit for this option. Patient understands with the standard IOL she may need glasses following surgery to get the best distance and reading vision. Patient desires to have Cataract Surgery OS first with the standard IOL. Schedule CE OS (Standard) followed by CE OD (Standard). - schedule cataract evaluation R elated to See list of assessments above - Discussed diagnosi s in detail with patient. Patient understands, discussed cataract surgery risks, benefits, procedures and recovery. Patient understands changing glasses will not improve vision. Patient wishes to proceed with surgery, schedule cataract evaluation with Dr Hudson. No diabetic changes. DM letter sent to Dr Romero. Related to See list of assessments above SENILE NUCLEAR CATAR ACT - Educational material given Related to SENILE NUCLEAR CATARACT - RTC in 1 year for a complete e xam Related to See impression: general plan General plan -DMII O PHTH NT ST UNCNTRL -SENILE NUCLEAR CATARACT - Cataracts diagnosis discussed with pt. The patient will monitor vision changes and call if interested in cataract eval. No diabetic changes. Letter sent to Dr. Romero. RTC in 1 year for a complete exam. Educational materials provided:about today's exam. Related to See impression: general plan cataracts - states vis seems ok to her no administrative operations coordinator - DM letter - 1yr Assessments Type Assessment Date assessment Drusen of macula of both eyes assessment Type 2 diabetes mellitus without complications Patient Care Teams Name Effective Dates (start - stop) Status Members No Information
--- OUTSIDE RECORDS SUMMARY | 2024-11-16 11:07 | XMS_ITS | Referral Summary ---
Author Organization [place] [address] Address [address] [facility] [[email or web address]] [address] [place] [address] Care Team Providers Care Bank Messenger Name Role Phone Tigre Romero MD Primary Care Provide r Encounters Date Type Department Care Team Description 10/18/2024 3:00 PM CDT Office Visit [facility] [address] [place] [address] [address] [place] [phone] Abel Rick MD Hyperlipidemia associated with type 2 diabetes mellitus (HCC) (Primary Dx); Essential hypertension; Coronary artery disease involving [place] coronary artery of [place] heart without angina pectoris; History of aortic valve replacement with tissue graft; Body mass index (BMI) 45.0-49.9, adult (HCC) 10/10/2024 Telephone [facility] [address] [place] [address] [address] [place] [address] Abel Rick MD 09/26/2024 Results Follow-Up [facility] [address] [place] [address] [address] [place] [address] Abel Rick MD Transthoracic Echo (TTE) Complete W Doppler/CF 09/20/2024 10:15 AM CDT Ancillary Procedure [facility] [address] [place] [address] [address] [place] [address] Coronary artery disease involving [place] coronary artery of [place] heart without angina pectoris; History of aortic valve replacement with tissue graft from Last 3 Months Allergies Active Allergy Reactions Criticality Noted Date Comments Amoxicillin Dizziness,Sweating Low 03/10/2022 No hives or wheezing. Pentazocine Other (See comments) Low Eyes rolled back; felt funny Medications insulin glargine (LANTUS) 100 unit/mL cartridge inject by subcutaneous route as per insulin protocol 0 1 Active Additional Information Patient not taking.Reported on 10/18/2024 cholecalciferol (VITAMIN D3) 2,000 unit tablet take 1 by Oral route every day 0 2 Active docusate sodium (DOC-Q-LACE) 100 mg capsule take 1 capsule (100MG) by oral route every day at bedtime as needed 0 2 Active insulin lispro (HumaLOG) 100 unit/mL injection inject by subcutaneous route as per insulin sliding scale protocol 0 2 Active Additional Information Patient not taking.Reported on 10/18/2024 aspirin (ASPIRIN LOW DOSE) 81 mg tablet take 1 tablet (81MG) by oral route every day 0 3 Active metoprolol XL (TOPROL-XL) 100 mg 24 hr tablet TAKE 1 TABLET (100MG) BY ORAL ROUTE EVERY DAY 90 5 2 Active louie.stockin g,thigh,reg,med misc 1 Product as directed 2 each 9 Active benazepriL (LOTENSIN) 40 mg tabletIndicatio ns:Benign essential HTN Take 1.5 tablets (60 mg total) by mouth daily 90 tablet 1 0 Active doxazosin (CARDURA) 1 mg tablet 1 Active furosemide (LASIX) 40 mg tabletIndicatio ns:Localized swelling of both lower extremities Take 2 tablets (80 mg total) by mouth daily 180 tablet 3 2 Active Additional Information Patient taking differently: 40 mgoral Daily, Reported on 10/18/2024 potassium chloride ER (Klor-Con M20) 20 mEq CR tablet Take 1 tablet (20 mEq total) by mouth daily 90 tablet 3 4 Active rosuvastatin (CRESTOR) 40 mg tablet Take 1 tablet (40 mg total) by mouth daily 90 tablet 3 4 Active Mounjaro 5 mg/0.5 mL pen injector injection Inject 0.5 mL (5 mg total) under the skin Active Active Problems Problem Noted Date Diagnosed Date Bilateral impacted cerumen 07/17/2022 Assessment & Plan (07/15/2023 10:56 AM ELEMENTARY INSTRUCTIONAL COACH): Avoid ear cleaning techniques Avoid water to ears Follow up in 9 months for ear check Vinegar and alcohol recipe discussed and Handout provided Assessment & Plan (07/17/2022 11:17 AM ELEMENTARY INSTRUCTIONAL COACH): Have [place] adjust hearing aids Follow up in one year for ear check, earlier if needed Continue hearing aids Mixed conductive and sensori neural hearing loss of left ear with restricted hearing of right ear 07/17/2022 Assessment & Plan (07/17/2022 11:17 AM ELEMENTARY INSTRUCTIONAL COACH): Have [place] adjust hearing aids Follow up in one year for ear check, earlier if needed Continue hearing aids Class 3 obesity 03/10/2022 Body mass index (BMI) 45.0-49.9, adult Essential hypertension 02/15/2020 Localized swelling of both lower extremities Morbid obesity with BMI of 45.0-49.9, adult 02/27 Overview (03/11/2017): Would like to lose sleep but unable to. Type 2 diabetes mellitus wit hout complication, with long-term current use of insulin 03/11/2017 Hyperlipidemia associated with type 2 diabetes m bijal 06/11/2016 Overview (10/03/2016): Hypercholesteremia Assessment & Plan (03/11/2017 1:06 PM CDT): Taking rosuvastatin 40 mg daily. History of aortic valve replacement with tissue graft 09/18/2015 Overview (10/03/2016): H/O aortic valve replacement with tissue graft Assessment & Plan (03/11/2017 1:06 PM CDT): Status post biologic valve replacement 2011 for aortic stenosis Looking good by echo, really no significant change in gradient over the last few years. Coronary artery disease invo lving [place] coronary artery of [place] heart 06/06/2014 Overview (10/03/2016): Coronary atherosclerosis Assessment & Plan (03/11/2017 1:19 PM CDT): Remote PCI of RCA and LAD. Doing well without angina Remains on DAPT without bleeding (Dr. Dawn was continuing DAPT). Can consider discontinuing 1 agent particularly if bleeding problems occur. Sleep apnea 08/31/2012 Shortness of breath 07/03/2011 Resolved Problems Problem Noted Date Diagnosed Date Resolved Date Preoperative cardiovascular examination 12/09/2017 02/23/2019 Benign essential HTN 03/11/2017 023 Assessment & Plan (03/11/2017 1:19 PM CDT): Hypertension isAt goal on medical therapy Social History Tobacco Use Types Packs/Day Years Used Date Smoking Tobacco: Never Smokeless Tobacco: Never Tobacco Cessation:Counseling Given: Not Answered Alcohol Use Standard Drinks/Week Comments No 0 (1 standard drink = 0.6 oz pur e alcohol) Comments No Sex and Gender Information Value Date Recorded Sex Assigned at Not on file Legal Sex Female 1:09 PM ELEMENTARY INSTRUCTIONAL COACH Gender Identity Not on file Sexual Orientation Not on file Occupation Industry Job Start Date Job End Date retired Not on file Not on file Not on file Last Filed Vital Signs Vital Sign Reading Time Taken Comments Blood Pressure 122/56 10/18/2024 3:43 PM CDT Pulse 64 10/18/2024 3:43 PM CDT Temperature 35.7 C (96.2 F) 07/15/2023 10:28 AM ELEMENTARY INSTRUCTIONAL COACH Respiratory Rate 18 03/24/2023 10:41 AM CDT Oxygen Saturation 96% 10/18/2024 3:43 PM CDT Inhaled Oxygen Concentration - - Weight 120.2 kg (265 lb) 10/18/2024 3:43 PM CDT Height 167.6 cm (5' 6 ) 10/18/2024 3:43 PM CDT Body Mass Index 42.77 10/18/2024 3:43 PM CDT Plan of Treatment Not on file Procedures Procedure Name Priority Date/Time Associated Diagnosis Comments TRANSTHORACIC ECHO (TTE) COMPLETE W DOPPLER/CF WO CONTRAST Routine 09/20/2024 10:41 AM CDT Coronary artery disease involving [place] coronary artery of [place] heart without angina pectoris History of aortic valve replacement with tissue graft POCT LIPID PANEL Routine 03/23/2023 11:0 5 AM CDT Lipid screening from Last 3 Months or Most Recently Relevant to Health Maintenance Results * TRANSTHORACIC ECHO (TTE) COMPLETE W DOPPLER/CF WO CONTRAST (09/20/2024 10:41 AM CDT) Anatomical Region Laterality Modality Ultrasound 09/20/2024 10:1 0 AM CDT Narrative 09/20/2024 11:[address] [facility] [address], [address], [place] [address] P:[phone] P:[phone] Echocardiographic Report Patient Name: DELILAH OROZCO J : 1940 Study Date: 09/20/2024 10:10:38 AM Gender: F Tech: Location: [facility] Provider: ABEL RICK Height(Cm): 168 BSA: 2.45 Weight(Kg): 128.4 Heart Rate: 100 BP: 136 / 54 Quality: Good Order Provider: ABEL RICK PROCEDURES: Echocardiographic Report: Transthoracic echocardiogram with complete 2D, M-Mode, and color Doppler examination. With Strain Analysis. INDICATIONS: Aortic Valve Replacement and Coronary Artery Disease. MEASUREMENTS: 2D/MM Value Range Doppler Value Range EF Mod BP 66 % [ 54 - 74 ] HAILEY Vmax 1.55 cm2 [ 2.00 - 4.00 ] LVIDd 2D 4.78 cm [ 3.80 - 5.20 ] AV Mean PG 11 mmHg LVIDd MM 4.11 cm [ 3.80 - 5.20 ] AV Peak Abel 2.26 m/s [ 1.00 - 1.70 ] LVIDs 2D 3.41 cm [ 2.20 - 3.50 ] AV Peak PG 20 mmHg LVIDs MM 3.32 cm [ 2.20 - 3.50 ] AV VTI 58.74 cm LVPWd 2D 1.36 cm [ 0.60 - 0.90 ] LVOT Diam 2.05 cm [ 1.70 - 2.10 ] LVPWd MM 1.41 cm [ 0.60 - 0.90 ] LVOT Peak Abel 1.07 m/s [ 0.70 - 1.10 ] IVSd 2D 1.24 cm [ 0.60 - 0.90 ] LVOT VTI 30.48 cm IVSd MM 1.69 cm [ 0.60 - 0.90 ] MV E Peak Abel 1.01 m/s [ 0.60 - 1.30 ] LA Dimension MM 4.79 cm [ 2.70 - 3.80 ] MV A Peak Abel 1.22 m/s [ 1.00 - 1.20 ] AoR Diam MM 2.81 cm [ 2.70 - 3.70 ] MV Decel Time 205 msec [ 104 - 258 ] LA Volume Index 31 cc/m2 [ 16 - 34 ] PV Peak Abel 0.77 m/s [ 0.40 - 0.80 ] Lateral E` 0.04 m/s [ 0.10 - 0.15 ] E` 0.04 m/s E/E` 23 2D/MM Value Range Doppler Value Range - FINDINGS: Interpretation Site: Exam was interpreted at [facility]. Left Ventricle: Global Longitudinal Strain is -15 %. The left ventricle is normal in size and systolic function. There is mild concentric left ventricular hypertrophy. The left ventricular ejection fraction is visually estimated to be 60-65%. Right Ventricle: Normal right ventricular size. Normal right ventricular systolic function. Left Atrium: The left atrium is normal in size. Right Atrium: The right atrium is normal in size. Atrial Septum: Normal atrial septum. Mitral Valve: The mitral valve is normal. There is mitral annular calcification. There is trace mitral regurgitation. Aortic Valve: Peak Velocity of 2.25 m/s. Peak gradient of 20.0 mmHg. Mean gradient of 11.0 mmHg. Valve area of 1.6 cm2. There is a normal functioning bioprosthesis that is well-seated in the aortic position. Tricuspid Valve: The tricuspid valve is normal. There is trace tricuspid regurgitation. Pulmonic Valve: The pulmonic valve is not well visualized. There is no color Doppler evidence of pulmonic valve regurgitation. Pericardium: Normal pericardium with no significant pericardial effusion. Aorta: Aortic root not well visualized. IVC: The IVC is not well visualized. CONCLUSIONS: Normal biventricular size and systolic function. Normal functioning bioprosthesis that is well-seated in the aortic position. Electronically Signed By: Dr. Tim Galan 09/20/2024 11:54:56 AM CDT Procedure Note Tim Galan MD - 09/20/2024 [facility] [address], [address], [place] [address] P:[phone] P:[phone] Echocardiographic Report Patient Name: DELILAH OROZCO J : 1940 Study Date: 09/20/2024 10:10:38 AM Gender: F Tech: Location: [facility] Provider: ABEL RICK Height(Cm): 168 BSA: 2.45 Weight(Kg): 128.4 Heart Rate: 100 BP: 136 / 54 Quality: Good Order Provider: ABEL RICK PROCEDURES: Echocardiographic Report: Transthoracic echocardiogram with complete 2D, M-Mode, and color Dopplerexamination. With Strain Analysis. INDICATIONS: Aortic Valve Replacement and Coronary Artery Disease. MEASUREMENTS: 2D/MM Value Range Doppler ValueRange EF Mod BP 66 % [ 54 - 74 ] HAILEY Vmax 1.55cm2 [ 2.00 - 4.00 ] LVIDd 2D 4.78 cm [ 3.80 - 5.20 ] AV Mean PG 11mmHg LVIDd MM 4.11 cm [ 3.80 - 5.20 ] AV Peak Abel 2.26m/s [ 1.00 - 1.70 ] LVIDs 2D 3.41 cm [ 2.20 - 3.50 ] AV Peak PG 20mmHg LVIDs MM 3.32 cm [ 2.20 - 3.50 ] AV VTI 58.74cm LVPWd 2D 1.36 cm [ 0.60 - 0.90 ] LVOT Diam 2.05 cm[ 1.70 - 2.10 ] LVPWd MM 1.41 cm [ 0.60 - 0.90 ] LVOT Peak Abel 1.07m/s [ 0.70 - 1.10 ] IVSd 2D 1.24 cm [ 0.60 - 0.90 ] LVOT VTI 30.48cm IVSd MM 1.69 cm [ 0.60 - 0.90 ] MV E Peak Abel 1.01m/s [ 0.60 - 1.30 ] LA Dimension MM 4.79 cm [ 2.70 - 3.80 ] MV A Peak Abel 1.22m/s [ 1.00 - 1.20 ] AoR Diam MM 2.81 cm [ 2.70 - 3.70 ] MV Decel Time 205msec [ 104 - 258 ] LA Volume Index 31 cc/m2 [ 16 - 34 ] PV Peak Abel 0.77m/s [ 0.40 - 0.80 ] Lateral E` 0.04 m/s [ 0.10 - 0.15 ] E` 0.04 m/s E/E` 23 2D/MM Value Range Doppler ValueRange - FINDINGS: Interpretation Site: Exam was interpreted at [facility]. Left Ventricle: Global Longitudinal Strain is -15 %. The left ventricle is normal in sizeand systolic function. There is mild concentric left ventricular hypertrophy. The leftventricular ejection fraction is visually estimated to be 60-65%. Right Ventricle: Normal right ventricular size. Normal right ventricular systolicfunction. Left Atrium: The left atrium is normal in size. Right Atrium: The right atrium is normal in size. Atrial Septum: Normal atrial septum. Mitral Valve: The mitral valve is normal. There is mitral annular calcification. Thereis trace mitral regurgitation. Aortic Valve: Peak Velocity of 2.25 m/s. Peak gradient of 20.0 mmHg. Mean gradient of11.0 mmHg. Valve area of 1.6 cm2. There is a normal functioning bioprosthesis that iswell-seated in the aortic position. Tricuspid Valve: The tricuspid valve is normal. There is trace tricuspid regurgitation. Pulmonic Valve: The pulmonic valve is not well visualized. There is no color Dopplerevidence of pulmonic valve regurgitation. Pericardium: Normal pericardium with no significant pericardial effusion. Aorta: Aortic root not well visualized. IVC: The IVC is not well visualized. CONCLUSIONS: Normal biventricular size and systolic function. Normal functioning bioprosthesis that is well-seated in the aorticposition. Electronically Signed By: Dr. Tim Galan 09/20/2024 11:54:56 AM CDT Abel Rick MD CV ECHO PROCEDURES Final Result * POCT lipid panel (03/23/2023 11:05 AM CDT) Cholesterol, POC 134 mg/dL HDL, POC 52 mg/dL Triglycerides, POC 222 mg/dL LDL Cholesterol POC 37 mg/dL Chol/HDL Ratio, POC 0.7 Non-HDL Cholesterol, POC 82 mg/dL Cholesterol Total, POC 134 mg/dL Capillary blood 03/23/2023 1 1:05 AM CDT Ruby Campa MD POINT OF CARE TEST ORDERABL ES Final Result from Last 3 Months or Most Recently Relevant to Health Maintenance Insurance [place] [employer] MEDICARE [facility] MEDICARE [facility] Care Teams Bank Messenger Relationship Specialty Start Date End Date Tigre Romero MD [address] [place] [address] PCP - General 09/26/16
--- OUTSIDE RECORDS SUMMARY | 2024-11-16 11:07 | XMS_ITS | Encounter Summary ---
Author Organization [facility] Healthcare Address [address] [place] [address] Care Team Providers Care No Bake Molder Name Role Phone Tigre Romero MD Primary Care Provide r Encounter Details Date Type Department Care Team (Latest Contact Info) Description 09/26/2024 Results Follow-Up [facility] Cardiology [address] [place] [address] Milton Ruby MD [address] [id number] Transthoracic Echo (TTE) Complete W Doppler/CF Social History Tobacco Use Types Packs/Day Years Used Date Smoking Tobacco: Never Smokeless Tobacco: Never Alcohol Use Standard Drinks/Week Comments No 0 (1 standard drink = 0.6 oz pur e alcohol) Comments No Sex and Gender Information Value Date Recorded Sex Assigned at Not on file Legal Sex Female 1:09 PM SHELLFISH CHECKER Gender Identity Not on file Sexual Orientation Not on file Occupation Industry Job Start Date Job End Date retired Not on file Not on file Not on file documented as of this encounter Plan of Treatment Not on file documented as of this encounter Visit Diagnoses Not on filedocumented in this encounter Care Teams No Bake Molder Relationship Specialty Start Date End Date Tigre Romero MD [address] [place] [address] PCP - General 09/26/16 documented as of this encounter
--- OUTSIDE RECORDS SUMMARY | 2024-11-16 11:07 | XMS_ITS | Clinical Summary ---
Author Organization [facility] [address] Address [address] [place] [address] Care Team Providers Care Steep Tender Name Role Phone Tigre Romero MD Primary Care Provide r Allergies Active Allergy Reactions Criticality Noted Date [...] 07/17/2022 Assessment & Plan (07/15/2023 10:56 AM PATTERN GENERATOR OPERATOR): Avoid ear cleaning techniques Avoid water to ears Follow up in 9 months for ear check Vinegar and alcohol recipe discussed and Handout provided Assessment & Plan (07/17/2022 11:17 AM PATTERN GENERATOR OPERATOR): Have [place] adjust hearing aids Follow up in one year for ear check, earlier if needed Continue hearing aids Mixed conductive and sensori neural hearing loss of left ear with restricted hearing of right ear 07/17/2022 Assessment & Plan (07/17/2022 11:17 AM PATTERN GENERATOR OPERATOR): Have [place] adjust hearing aids Follow up in one year for ear check, earlier if needed Continue hearing aids Class 3 obesity 03/10/2022 Body mass index (BMI) 45.0-49.9, adult 2 Essential hypertension 02/15/2020 Localized swelling of both [...] few years. Coronary artery disease invo lving [place] coronary artery of [place] heart 06/06/2014 Overview (10/03/2016): Coronary atherosclerosis Assessment & Plan (03/11/2017 1:19 PM CDT): Remote PCI of RCA and LAD. Doing well without angina Remains on DAPT without bleeding (Dr. Dwan was continuing DAPT). Can consider discontinuing 1 agent particularly if bleeding problems occur. Sleep apnea 08/31/2012 Shortness of breath 07/03/2011 Resolved Problems Problem Noted Date Diagnosed Date Resolved Date Preoperative cardiovascular examination 12/09/2017 02/23/2019 Benign essential HTN 03/11/2017 023 Assessment & Plan (03/11/2017 1:19 PM CDT): Hypertension isAt goal on medical therapy Encounters Date Type Department Care Team Description 10/18/2024 3:00 PM CDT Office Visit [facility] Card[facility] [address] [place] [address] Abel Rick MD Hyperlipidemia associated with type 2 diabetes mellitus (HCC) (Primary Dx); Essential hypertension; Coronary artery disease involving [place] coronary artery of [place] heart without angina pectoris; History of aortic valve replacement with tissue graft; Body mass index (BMI) 45.0-49.9, adult ([facility]) 10/10/2024 Telephone [facility] Cardiology [address] [place] [address] Abel Rick MD 09/26/2024 Results Follow-Up [facility] Cardiology [address] [place] [address] Abel Rick MD Transthoracic Echo (TTE) Complete W Doppler/CF 09/20/2024 10:15 AM CDT Ancillary Procedure [facility] Cardiology [address] [place] [address] Coronary artery disease involving [place] coronary artery of [place] heart without angina pectoris; History of aortic valve replacement with tissue graft from Last 3 Months Surgical History Surgery Date Site/Laterality Comments CARDIAC VALVE REPLACEMENT 06/29/2011 - 06/28/2012 aortic valve APPENDECTOMY 06/29/2006 - 06/28/2007 UMBILICAL HERNIA REPAIR 1940 - 06/28/1941 Medical History Medical History Date Comments Sleep apnea Hypertension Hyperlipidemia Diabetes ([facility]) Obesity Family History Medical History Relation Name Comments Hypertension Brother Heart disease Mother Leukemia Mother Diabetes Son Relation Name Status Comments Brother Mother Son Social History Tobacco Use Types Packs/Day Years Used Date Smoking Tobacco: Never Smokeless Tobacco: Never Tobacco Cessation:Counseling Given: Not Answered Alcohol Use Standard Drinks/Week Comments No 0 (1 standard drink = 0.6 oz pur e alcohol) Comments No Sex and Gender Information Value Date Recorded Sex Assigned at Not on file Legal Sex Female 1:09 PM PATTERN GENERATOR OPERATOR Gender Identity Not on file Sexual Orientation Not on file Occupation Industry Job Start Date Job End Date retired Not on file Not on file Not on file Obstetrics History Para Term AB IAB SAB Ectopic Multiple Livin g Live Births 4 4 4 0 0 0 0 0 0 4 4 Date Outcome GA Total Labor Labor/2nd/3rd Weight Sex Type Anes PTL Yesenia A1 A5 Name Clin Term Term Term Term Last Filed Vital Signs Vital Sign Reading Time Taken Comments Blood Pressure 122/56 10/18/2024 3:43 PM CDT Pulse 64 10/18/2024 3:43 PM CDT Temperature 35.7 C (96.2 F) 07/15/2023 10:28 AM PATTERN GENERATOR OPERATOR Respiratory Rate 18 03/24/2023 10:41 AM CDT Oxygen Saturation 96% 10/18/2024 3:43 PM CDT Inhaled Oxygen Concentration - - Weight 120.2 kg (265 lb) 10/18/2024 3:43 PM CDT Height 167.6 cm (5' 6 ) 10/18/2024 3:43 PM CDT Body Mass Index 42.77 10/18/2024 3:43 PM CDT Plan of Treatment Health Maintenance Due Date Last Done Comments Albumin Creatinine Ratio, Urine 1940 Depression Screening 1940 Fall Risk Assessment 1940 Hemoglobin A1C 1940 Osteoporosis Screening-Bone Density Scan 1940 eGFR 1940 Dilated Eye Exam 1940 Foot Exam 1940 Hepatitis B Screening 1958 Zoster Vaccine (1 of 2) 1990 Well Visit 65+ 09/13/2021 09/13/2020 Lipid Panel 03/23/2024 03/23/2023, 02/27, 05/07/2020, Additional history exists Influenza Vaccine (Season Ended) 2025 03/22/2018, 04/16/2017, 03/18/2016, Additional history exists DTaP/Tdap/Td Vaccine (2 - Td or Tdap) 02/08/2027 02/08/2017, 05/13/2012 Pneumococcal vaccine 65+ Completed 015, 03/16/2014, 12/15/2008 Procedures Procedure Name Priority Date/Time Associated Diagnosis Comments TRANSTHORACIC ECHO (TTE) COMPLETE W DOPPLER/CF WO CONTRAST Routine 09/20/2024 10:41 AM CDT Coronary artery disease involving [place] coronary artery of [place] heart without angina pectoris History of aortic valve replacement with tissue graft POCT LIPID PANEL Routine 03/23/2023 11:0 5 AM CDT Lipid screening from Last 3 Months or Most Recently Relevant to Health Maintenance Results * TRANSTHORACIC ECHO (TTE) COMPLETE W DOPPLER/CF WO CONTRAST (09/20/2024 10:41 AM CDT) Anatomical Region Laterality Modality Ultrasound 09/20/2024 10:1 0 AM CDT Narrative 09/20/2024 11:55 AM CDT [facility] Cardiology [address] , [address], [place] [address] P:[phone] P:[phone] Echocardiographic Report Patient Name: DELILAH OROZCO J : 1940 Study Date: 09/20/2024 10:10:38 AM Gender: F Tech: Location: [facility] Provider: ABEL RICK Height(Cm): 168 BSA: [...] FINDINGS: Interpretation Site: Exam was interpreted at [facility]. Left Ventricle: Global Longitudinal Strain is -15 [...] Procedure Note Tim Galan MD - 09/20/2024 [facility] Cardiology [address], [address], [place] [address] P:[phone] P:[phone] Echocardiographic Report Patient Name: DELILAH OROZCO J : 1940 Study Date: 09/20/2024 10:10:38 AM Gender: F Tech: Location: [facility] Provider: ABEL RICK Height(Cm): 168 BSA: [...] FINDINGS: Interpretation Site: Exam was interpreted at [facility]. Left Ventricle: Global Longitudinal Strain is -15 [...] Most Recently Relevant to Health Maintenance Insurance [employer] MEDICARE [facility] MEDICARE [facility] Care Teams Steep Tender Relationship Specialty Start Date End Date Tigre Romero MD [address] [place] [address] PCP - General 09/26/16
--- OUTSIDE RECORDS SUMMARY | 2024-11-16 11:07 | XMS_ITS | Continuity of Care Document ---
Author Organization [facility] Address [address] [place] [address] Phone Care Team Providers Care Integrity Consultant Name Role Phone Brunilda White MD Unavailable Unavailable Allergies, Adverse Reactions, Alerts Substance Reaction Status Criticality PENTAZOCINE LACTATE Other Active No Infor mation Medications Medication Instructions Dosage Effective Dates (start - stop) Status Comments LASIX 40 MG TABLET 1 DAILY - Active GEMFIBROZIL 600MG TABS 1 BID - Act cristy PLAVIX 75MG TABS 1 QD - Active LOPRESSOR 50MG TABS 1 BID - Active ACTOS 45MG TABS 1 QD - Active LOTREL 5-20MG CAPS 1 QD - Active METFORMIN HCL 1000MG TABS 1 BID - Active GLYBURIDE MICRONIZED 6MG TABS 1 BID - Active ASPIRIN 325MG 325MG TABS 1 QD - A ctive Advance Directives Directive Yes / No Effective Date File Name No Information Encounters Encounter Description Practice Location Reason(s) For Visit Diagnoses Date Provider Providers Copied on Encounter [facility], [address], [place], [place], [address] , tel: [phone] [facility] No Information 7 Christopher Worley. [address], [address], [place], [place], [address], . tel:[phone] [facility], [address], [place], [place], [address] , tel: [phone] Conversion Department No Information 0 1 Conversion Doctor. [address] [place] [address], [address], [place]. [facility], [address], [place], [place], [address] , tel:[phone] [facility] HYPERLIPIDEMIA NEC/NOSCOR ATH UNSP VSL NTV/GFTBENIGN HYPERTENSIONLON G-TERM USE MEDS NEC 5 No Information [facility], [address], [place], [place], [address] , tel: [phone] [facility] DMII WO CMP NT ST UNCNTR 5 Conversion Doctor. [address] [place] [address], [address], [place]. [facility], [address], [place], [place], [address] , tel: [phone] [facility] CRNRY ATHRSCL NATVE VSSL 5 No Information [facility], [address], [place], [place], [address] , [place] tel: [phone] [facility] CHEST PAIN NOSSHORTNESS OF BREATHOBESITY NOS 5 No Information [facility], [address], [place], [place], [address] , [place] tel: [phone] [facility] ACUTE URI NOSDMII WO CMP UNCNTRLD 4 No Information [facility], [address], [place], [place], [address] , tel: [phone] [facility] HYPERTENSION NOS 3 Conversion Doctor. [address] [place] [address], [address], . Family History Family Member Type Diagnosis Age At Onset No Information Payers Payer name Insurance type Covered green party ID Authoriza tion(s) No Information Social History Type Description Quantity Date Captured Comments Alcohol Use Details Unknown Caffeine Use Details Unknown Tobacco Use Status No Information Smoking Status No Information Sex Female Chief Complaint And Reason For Visit No Information Reason For Referral Reason For Referral No Information History Of Present Illness Encounter Date Complaint History Of Prese nt Illness No Information Functional Status Date Functional Assessmen t No Information Instructions Date Instruction Additional Infor mation No Information Assessments Type Assessment Date No Information Patient Care Teams Name Effective Dates (start - stop) Status Members No Information
--- OUTSIDE RECORDS SUMMARY | 2024-11-16 11:07 | XMS_ITS | CONTINUITY OF CARE DOCUMENT ---
Author Name dhaval puentes Address Unknown Organization [facility] Office Address [address] [place] [address] Phone [phone] Care Team Providers Care [employer]om [employer] Name Role Phone dhaval puentes Unavailable Unavailable
--- OUTSIDE RECORDS SUMMARY | 2024-11-16 11:07 | XMS_ITS | Encounter Summary ---
Author Organization [facility] Address [address] [place] [address] Care Team Providers Care Personal Financial Planner Name Role Phone Tigre Romero MD Primary Care Provide r Tigre Romero MD Primary Care Provide r Encounter Details Date Type Department Care Team (Late st Contact Info) Description 07/10/2016 Orders Only [facility] ProviderAudie MD [address] [place] [address] Social History Tobacco Use Types Packs/Day Years Used Date Smoking Tobacco: Never Alcohol Use Standard Drinks/Week Comments No 0 (1 standard drink = 0.6 oz pur e alcohol) Comments Unknown Sex and Gender Information Value Date Recorded Sex Assigned at Not on file 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 Historical Provider [facility] Final Result documented in this encounter Visit Diagnoses Not on filedocumented in this encounter Care Teams Personal Financial Planner Relationship Specialty Start Date End Date Tigre Romero MD [address] [place] [address] PCP - General 09/26/16 Tigre Romero MD [address] [place] [address] PCP - General 09/01/12 09/25/16 documented as of this encounter
--- OUTSIDE RECORDS SUMMARY | 2024-11-16 11:07 | XMS_ITS | Data Portability ---
Author Organization [facility] Address [address] [place] [address] Assessment No assessment recorded. Plan of Treatment Reminders Order Date Submit Date Provider Last Modified By Organization Details Last Modified Time Details Appointments ANY 15 2024 11:00A M Joshua Tolliver MD Not available Not available Not available Lab None recorded. Referral None recorded. Procedures None recorded. Surgeries None recorded. Imaging None recorded. Medication Orders Ciprodex 0.3 %-0.1 % ear drops,oly pension 2024 025 [facility], [facility] [place], [address], 10/04/2024 11:25:12 mometason e 0.1 % topical cream 2024 025 [facility], [facility] [place], [address], 10/04/2024 11:25:10 Patient TargetsNo targets recorded. Patient InstructionsNo instructions recorded. Reason for Referral None Reported. Medical Equipment None Reported. Allergies No known drug allergies Medications Name Sig Start Date Stop Date Status Note LastModified by Organization Details LastModified Time furosemide 40 mg tablet active Not Available Not Available Not Available doxazosin 1 mg tablet 10/18 completed Not Available Not Available Not Available metoprolol succinate ER 100 mg tablet,exte nded release 24 hr active Not Available Not Available Not Available cephalexin 500 mg capsule 06/07 completed Not Available Not Available Not Available benazepril 40 mg tablet active Not Available Not Available Not Available mometasone 0.1 % topical cream APPLY A THIN LAYER TO THE AFFECTED AREA(S) BY TOPICAL ROUTE ONCE DAILY 2024 active Not Available Not Available Not Avai lable Ciprodex 0.3 %-0.1 % ear drops,suspe nsion INSTILL 4 DROPS INTO AFFECTED EAR(S) BY OTIC ROUTE 2 TIMES PER DAY FOR 7 DAYS 2024 active Not Available Not Available Not Avai lable rosuvastati n 40 mg tablet active Not Available Not Available Not Available Klor-Con M20 mEq tablet,exte nded release active Not Available Not Available Not Available BD Ultra-Fine Short Pen Needle 31 gauge x 11/11 active Not Available Not Available Not Available Humalog KwikPen (U-100) Insulin 100 unit/mL subcutaneou s 10/04 completed Not Available Not Available Not Available Mounjaro 7.5 mg/0.5 mL subcutaneou s pen injector INJECT 7.5 MG BY SUBCUTANE OUS ROUTE ONCE WEEKLY active Not Available Not Available No t Available Mounjaro 5 mg/0.5 mL subcutaneou s pen injector INJECT 5 MG SUBCUTANE OUSLY ONE TIME PER WEEK active Not Available Not Available No t Available Vitals Date Recorded Body height Body mass index (BMI) Body weight Respiratory rate Body temperature Heart rate Systolic blood pressure Diastolic blood pressure Provider Name and Address Organization Details Last Updated DateTime 4 165.1 cm 47.2 kg/m2 189026. 87 g 16 /min 98.1 [degF] 65 /min 135 mm[Hg] 75 mm[Hg] Khushi Hinds MA [facility] 4 16:12:38 Date Recorded Body height Body mass index (BMI) Body weight Respiratory rate Body temperature Heart rate Systolic blood pressure Diastolic blood pressure Provider Name and Address Organization Details Last Updated DateTime 5 165.1 cm 45.4 kg/m2 850740. 72 g 16 /min 98 [degF] 66 /min 126 mm[Hg] 72 mm[Hg] MARIO Borges [place] - [facility] 5 11:09:08 Date Recorded Body height Body weight Heart rate Body temperature Systolic blood pressure Diastolic blood pressure Provider Name and Address Organization Details Last Updated DateTime 5 165.1 cm 882535. 83 g 73 /min 97.7 [degF] 124 mm[Hg] 72 mm[Hg] Annia Gutierrez MA [place] - [facility] 11:02:59 Social History Question Answer Notes LastModified by Organizat ion Details LastModified Time Tobacco Smoking Status Never Smoker Khushi JeanLACEY savage null, [place] - [facility] 06/07/2024 16:10:03 Do You Have An Advance Directive? Yes Information not available 06/07/2024 Are You Blind Or Do You Have Difficulty Seeing? No Information not available 06/07/2024 What Is Your Level Of Caffeine Consumption? Moderate Information not available 06/07/2024 In The 14 Days Before Symptom Onset, Have You Had Close Contact With A Laboratory-confir med COVID-19 While That Case Was Ill? No Information not available 06/07/2024 In The 14 Days Before Symptom Onset, Have You Had Close Contact With A Person Who Is Under Investigation For COVID-19 While That Person Was Ill? No Information not available 06/07/2024 Have You Been To An Area Known To Be High Risk For COVID-19? No Information not available 06/07/2024 Are You Deaf Or Do You Have Serious Difficulty Hearing? Yes Hearing Aids Information not available 06/07/2024 What Type Of Diet Are You Following? REGULAR Information not available 06/07/2024 What Was The Date Of Your Most Recent Tobacco Screening? 10/18/2024 [email or web address] Information not available 10/18/2024 Do You Have Any Pets? No Information not available 06/07/2024 Do You Use Sunscreen Routinely? No Information not available 06/07/2024 Sex: Female Functional Status Question Answer Note LastModified by Organization Details LastModified Time Do you use any illicit or recreational drugs? No Information not available 06/07/2024 Do you or have you ever used any other forms of tobacco or nicotine? No Information not available 06/07/2024 What is your level of alcohol consumption? None Information not available 06/07/2024 What is your exercise level? None Information not available 06/07/2024 What type of noise exposure are you exposed to? noExposureToExcessiveNoise Infor mation not available 06/07/2024 Mental Status Question Answer Note LastModified by Organization D etails LastModified Time Do you feel stressed (tense, restless, nervous, or anxious, or unable to sleep at night)? [id number] Information not available 06/07/2024 Family History Nothing Reported. Medical History No medical history recorded. Gynecological HistoryNo gynecological history recorded. Obstetrics History GPAL:G 0 P 0 0 0 0 Past Encounters Encounter ID Performer Location Encounter Start Date Encounter Closed Date Diagnosis/Indication Diagnosis SNOMED-CT Code Diagnosis ICD10 Code Diagnosis Note [id number] MD Shankar Florentino (Adult Med) [address] [place] [address] 06/07/2024 16:03:29 06/13/2024 09:27:48 Impacted cerumen of bilateral ears 8062784209 256762 H61.23 ears cleared return as needed [id number] MD Shankar Florentino (Adult Med) [address] [facility] [place] [place] [address] 10/04/2024 10:58:55 10/05/2024 10:27:52 Chronic otitis externa 75700420 H60.63 follow back in two weeks Dermatitis of external auditory canal 334395557 H60.93 [id number] MD Shankar Florentino (Adult Med) [address] [place] [address] 10/18/2024 10:54:25 10/20/2024 10:10:31 Dermatitis of external ear 788789017 L30.9 much improved follow back as needed Health Concerns Section Related Observation LastModified by Organization Detai ls LastModified Time None Recorded Concern Status LastModified by Organization Details LastModified Time None Recorded Advance Directives Directive Y: Payers Encounter Date Sequence Insurance Name Policy Number Policy Koo Covered Member ID Koo Member ID Guarantor Name 06/07/2024 1 [place] Delilah Latif [id number] Delilah Latif 06/07/2024 2 [employer] (MEDICARE SUPPLEMENT) Delilah Latif [id number] Delilah Latif 10/04/2024 1 [place] Delilah Latif [id number] Delilah Latif 10/04/2024 2 [employer] (MEDICARE [place]PPLE[place]) Delilah Latif [id number] Delilah Latif 10/18/2024 1 [place] Delilah Latif [id number] Delilah Latif 10/18/2024 2 [employer] (MEDICARE [place]PPLE[place]) Delilah Latif [id number] Delilah Latif Notes Date Note Type Note Provider Name and Address Organization Details Recorded Time 06/07/2024 text/html Pt complaining o f blockage of her ears. She wears hearing aids and was told she has wax Joshua Tolliver MD Attn: [address] [place], [address], [facility] 06/07/2024 16:23:12 10/04/2024 text/html Pt complaining o f blockage of her ears. She has a hx of cerumen. She has been getting dermatitis of her pinna as well Joshua Tolliver MD Attn: [address] [place], [address], [facility] 10/04/2024 11:23:12 10/18/2024 text/html Pt complaining o f blockage and itching of her ears. She is much improved with steroid cream and drops Joshua Tolliver MD Attn: [address] [place], [address], [facility] 10/18/2024 11:09:48 OBGyn Episode No OBEpisode recorded.
[2024-11-16 11:14] LABS: Alanine Aminotransferase 16 U/L (6-35); Albumin Level 3.8 g/dL (3.5-5.1); Alkaline Phosphatase 91 U/L (38-126); Anion Gap 4 mmol/L (4-12); Aspartate Amino Transferase 22 U/L (14-36); Bilirubin,Total 0.9 mg/dL (0.2-1.3); Blood Urea Nitrogen 17 mg/dL (7-17); Calcium 9.4 mg/dL (8.4-10.2); Carbon Dioxide 27 mmol/L (22-30); Chloride 103 mmol/L (98-107); Estimated Glomerular Filt Rate > 60; Glucose 197 mg/dL (65-110); Osmolality Calculated 284 mOsm/kg (285-295); Potassium 4.7 mmol/L (3.4-5.0); Sodium 134 mmol/L (137-145); Total Protein 6.1 g/dL (6.3-8.2)
== END 2024-11-16 10:31 | disposition home or self-care (01) ==
LOC: CHSLAB 10:32
PROVIDERS: PCP Family Medicine; Visit Provider Family Medicine
DX: E11.21 Type 2 diabetes mellitus with diabetic nephropathy (principal); R94.6 Abnormal results of thyroid function studies
CPT/HCPCS: 36415; 80053; 83036; 84439; 84443; 85025

== ENCOUNTER 2025-02-06 10:44 | Outpatient (CLI) | payer MEDICARE, SELFPAY ==
--- OUTSIDE RECORDS SUMMARY | 2025-02-06 10:53 | XMS_ITS | Continuity of Care Document ---
Author Organization [facility] [place] [address] Beodlla [address] [place] [phone] Phone Care Team Providers Care Balance Sheet Analyst Name Role Phone Yasmeen Sosa OD Unavailable [...] Copied on Encounter Office/outpa tient Visit, [facility], [address] [place] [address] [address], [place], [place], [address], tel:[phone] SEC Gian [place] Professional diabetic eye exam (chief complaint) Drusen of macula of both eyesType 2 diabetes mellitus without complications 5 Ian OD Yasmeen. [address] [place] [address] [address], [address], [place], [place], [address], [place]. tel:[phone] Ruby Campa MD.Referri Provider: Omero Singh, [address] [facility], [place], [address] . tel:[phone] [facility], [address], [place], [place], [address], [place] tel:[phone] SEC [place] Professional Complete Exam (chief complaint) Type 2 diab with mild nonp rtnop without mclr edema, r eyePseudophaki a of both eyesOther secondary cataract, bilateralDry eye syndrome of left lacrimal gland 3 Emigdio Jamil. [address], [facility] [place] [address], [place], [place], [address], [place]. tel:[phone] Ruby Campa MD.Referri ng Provider: Omero Singh, [address] [facility], [place], [address] . tel:[phone] [facility], [address] [place] [address] [address], [place], [place], [address], [place] tel:[phone] SEC [place] Professional Diabetic eye exam (chief complaint) Pseudophakia of both eyesType 2 diabetes mellitus without complicationsO ther secondary cataract, bilateralDry eye syndrome of left lacrimal gland Sep-1 - 2 Emigdio Jamil. [address], [address], [place], [place], [address], [place]. tel:[phone] Ruby Campa MD.Referri ng Provider: Omero Singh, [address], [place], [address] . tel:[phone] [facility], [address] [place] [address] [address], [place], [place], [address], [place] tel:[phone] SEC Gian [place] Professional Complete Exam (chief complaint) Pseudophakia of both eyesType 2 diabetes mellitus without complicationsC yst of right lower eyelidOther secondary cataract, left eyeVitreous degeneration, left eyeRPE mottling of macula Sep-0 1 Emigdio Jamil. [address], [address], [place], [place], [address], [place]. tel:[phone] Ruby Campa MD.Referri ng Provider: Omero Singh, [address], [place], [address] . tel:[phone] [facility], [address] [place] [address] [address], [place], [place], [address], [place] tel:[phone] SEC [place] Professional Complete Exam (chief complaint) Other secondary cataract, left eyeType 2 diabetes mellitus without complicationsP resence of pseudophakia Aug-2 0-201 8 Emigdio Jamil. [address], [place], [place], [address], [place]. tel:[phone] Referring Provider: Peter Blackman [address], [place], [address] . tel:[phone] Office/outpa tient Visit, [facility], [address], [place], [place], [address], [place] tel:[phone] SEC Gian HUGG[place] Professional IOL check (chief complaint) No Information 6 Emigdio Jamil. [address], [place], [place], [address], [place]. tel:[phone] Referring Provider: Peter Blackman, [address] [facility] [address], [place], [address] . tel:[phone] Office/outpa tient Visit, [facility], [address] [place] [address] [address], [place], [place], [address], [place] tel:[phone] SEC Gian HUGGINS Professional 4 month DFE (chief complaint) No Information 6 Emigdio Jamil. [address], [place], [place], [address], [place]. tel:[phone] Referring Provider: Peter Blackman, [address], [place], [address] . tel:[phone] [facility], [address] [place] [address] [address], [place], [place], [address], [place] tel:[phone] SEC Gian HUGGINS Professional 1 month post op (chief complaint) No Information 6 Emigdio Jamil. [address], [place], [place], [address], [place]. tel:[phone] Referring Provider: Peter Blackman, [address], [place], [address] . tel:[phone] [facility], [address] [place] [address] [address], [place], [place], [address], [place] tel:[phone] SEC Gian HUGGINS Professional F/u exam, postop (chief complaint) No Information 6 Emigdio Jamil. [address], [place], [address], . tel:[phone] Referring Provider: Peter Blackman, [address], [place], [address] . tel:[phone] [facility], [address] [place] [address] [address], [place], [place], [address], tel:[phone] SEC Gian HUGGINS Professional 1 day PCIOL OD (chief complaint) No Information 6 Emigdio Jamil. [address] [facility], [address] [place], [address], . tel:[phone] Referring Provider: Peter Blackman, [address], [place], [address] . tel:[phone] [facility], [address], [place], [place], [address], [place] tel:[phone] [facility] No Information 6 Emigdio Jamil. [address], [address] [place], [address], [place]. tel:[phone] Referring Provider: Peter Blackman, [address] [place] [place], [address] . tel:[phone] [facility], [address], [place], [place], [address], tel:[phone] SEC Tj Ashby No Information 6 Emigdio Jamil. [address], [address] [place], [address], [place]. tel:[phone] Referring Provider: Peter Blackman, [address], [place], [address] . tel:[phone] [facility], [address], [place], [place], [address], [phone] SEC Gain [place] Professional F/u exam, postop (chief complaint) No Information Santhosh-0 6-201 6 Jhoanswathi Green. [address], [place], [place], [address], [place]. tel:[phone] Referring Provider: Peter Jhoanswathi Blackman, [address] [facility] [address], [place], [address] . tel:[phone] [facility], [address] [place] [address] [address], [place], [place], [address], [place] tel:[phone] SEC Gian [place] Professional 1 week P/O OS (chief complaint) No Information May-1 5-201 5 Emigdio Jamil. [address] [facility], [address] [place], [address], [place]. tel:[phone] Referring Provider: Peter Blackman, [address], [place], [address] . tel:[phone] [facility], [address] [place] [address] [address], [place], [place], [address], [place] tel:[phone] SEC [place] Professional 1 day post OP (chief complaint) No Information May-0 9-201 5 Emigdio Jamil. [address], [address] [place], [address], [place]. tel:[phone] Referring Provider: Peter Stonecintia Blackman, [address], [place], [address] . tel:[phone] [facility], [address] [place] [address] [address], [place], [place], [address], [place] tel:[phone] [facility] [place] No Information Dec-0 8- 5 Emigdio Jamil. [address] [facility], [address] [place], [address], . tel:[phone] Referring Provider: Peter Blackman, [address] [facility] [place], [address] . tel:[phone] [facility], [address], [place], [place], [address], [place] tel:[phone] SEC Harlan Terell [facility] No Information Dec-0 5 Emigdio Jamil. [address] [facility], [address] [place], [address], . tel:[phone] Referring Provider: Peter Blackman, [address] [facility] [place], [address] . tel:[phone] [facility], [address], [place], [place], [address], [place] tel:[phone] SEC [place] Professional No Information Dec-0 4- 5 Emigdio Jamil. [address] [facility], [facility] [place], [address], . tel:[phone] [facility], [address], [place], [place], [address], [place] tel:[phone] SEC [place] Professional blurry vision (chief complaint) No Information 3- 5 Emigdio Jamil. [address] [facility], [facility] [place], [address], [place]. tel:[phone] Referring Provider: Peter Blackman, [address] [place], [address] . tel:[phone] [facility], [address], [place], [place], [address], [phone] SEC Gian HUGGINS Professional Diabetic eye exam (chief complaint) No Information 5 Sandra Green. [address] [facility], [address], [place], [place], [address], . tel:[phone] Referring Provider: Peter Blackman, [address] [facility] [address], [place], [address] . tel:[phone] [facility], [address], [place], [place], [address], tel:[phone] SEC Gian HUGGINS Professional No Information 4 Sandra Green. [address] [facility], [address] [place], [address], . tel:[phone] Referring Provider: Peter Blackman, [address] [facility] [address], [place], [address] . tel:[phone] [facility], [address], [place], [place], [address], tel:[phone] SEC Gian HUGGINS Professional No Information 3 Sandra Green. [address] [facility], [address] [place], [address], [place]. tel:[phone] Referring Provider: Peter Blackman, [address] [address] [place], [address] . tel:[phone] [facility], [address], [place], [place], [address], [phone] SEC Gian HUGGINS Professional No Information 3 Fay Jernigan. [address], [place], [address], [place]. tel:[phone] [facility], [address], [place], [place], [address], tel:[phone] SEC Mosier JOSELUIS Professional No Information 5201 1 Wankcintia Green. [address], [address] [place], [address], . tel:[phone] [facility], [address], [place], [place], [address], tel:[phone] SEC Gian [place] Professional No Information 1-200 9 Wankum Peter. [address], [address] [place], [address], . tel:[phone] [facility], [address], [place], [place], [address], tel: SEC Gian [place] Professional No Information 0-200 8 Wankum Peter. [address], [address], [place], [place], [address], . tel:[phone] [facility], [address], [place], [place], [address], tel:[phone] SEC Gian HUGGINS Professional No Information 0-200 7 Wankum Peter. [address], [address] [place], [address], . tel:[phone] Family History Family Member Type Diagnosis Age At Onset Problem (finding) Family history of Diabe brenda mellitus Payers Payer name Insurance type Covered green party ID Authortravisa sharon(s) [place] [id number] [facility] [id number] Social History Type Description Quantity Date Captured [...] Treatment Date Type Action Status Referral Ordered: Tigre Romero (related to Type 2 diabetes mellitus without complications) ordered Referral Referred To: Tigre Romero [address], [place] [id number] Ordered: Referrals: Tigre Romero. Follow-up and Treat [...] t No Information Instructions Date Instruction Additional Mukund polanco Impression/Plan Impression/Plan Impression/Plan Impression/Plan Impression/Plan Rec good blood sugar control Rel ated to Type 2 diabetes mellitus without complications Type 2 diabetes miriam itus without complication, [...] complication, with long-term current use of insulin Impression/Plan - Ty pe II Diabetes: No background diabetic retinopathy and no signs of neovascularization noted. Ocular and systemic benefits of good blood sugar control discussed with patient. Letter sent to Tigre Romero MD regarding today's exam findings. The vision and IOP are stable OU. Recommend patient return in 1 year or sooner with problems. Follow up - Return t o clinic in 1 year for complete exam Follow up - Return i n 6 months with Omero Beal M.D. for follow up exam. Impression/Plan - Di abetes type II: no background retinopathy, no signs of neovascularization noted. Discussed ocular and systemic benefits of blood sugar control. DM letter sent to Dr Romero. Patient doing well with new eyeglasses. IOL's in good position. OCT mac indicates no macular edema. Return to clinic in 6 months for follow up or sooner with any problems. Bilateral pseudophak ia - Educational material given Related to Bilateral pseudophakia Impression/Plan - 1 month s/p CE OD. Vision stable. IOP stable. No diabetic changes noted upon today's exam. Discussed glasses RX with patient. Patient was given new glasses RX today. Patient will finish the eye drop taper over the next few days. Patient will return in 4 months or sooner with problems. Follow up - 4 month DFE OU Follow up - RTC as scheduled Impression/Plan - On e week PO s/p [...] clinic as scheduled or sooner with problems. Impression/Plan - On e month PO s/p Phaco with IOL OS. IOL in good position; healing well. Patient will use the last PO drop until it runs out and understands she no longer has any physical restrictions. Patient OK to proceed with OD CE. Follow up - Proceed with OD CE. Follow up - RTC as scheduled Impression/Plan - On e week s/p phaco with IOL OS. IOL in good position; healing well. Medication instillation and post op instructions reviewed. Pt elects to continue wearing shield at bedtime. Discussed shadows in the left eye and symptoms of dysphotopsia. Will continue to monitor. RTC as scheduled or sooner if problems. Impression/Plan - On e Day PO s/p Phaco with IOL OS in good position. Patient healing well. Medication instillation, sheild use and restrictions reviewed with patient. Return to clinic as scheduled or sooner with problems. Follow up - RTC as scheduled Follow up - Schedule OS CE first, [...] OS (Standard) followed by CE OD (Standard). 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
--- OUTSIDE RECORDS SUMMARY | 2025-02-06 10:53 | XMS_ITS | Continuity of Care Document ---
Author Organization [facility] Address [address] [place] [address] Phone Care Team Providers Care Shake Cutter Name Role Phone Brunilda White MD Unavailable [...] Diagnoses Date Provider Providers Copied on Encounter [email or web address], [address], [place], [place], [address] , tel: [phone] [email or web address] [facility] No Information 7 Christopher Worley. [address] [facility], [address], [place], [place], [address], . tel:[phone] [email or web address], [address], [place], [place], [address] , tel: [phone] [facility] No Information 0 1 Conversion Doctor. [address] [place] [address], [address], [place]. [email or web address], [address], [place], [place], [address] , tel:[phone] [facility] HYPERLIPIDEMIA NEC/NOSCOR ATH UNSP VSL NTV/GFTBENIGN HYPERTENSIONLON G-TERM USE MEDS NEC 5 No Information [email or web address], [address], [place], [place], [address] , tel: [phone] [facility] DMII WO CMP NT ST UNCNTR 5 Conversion Doctor. [address] [place] [address], [address], [place]. [email or web address], [address], [place], [place], [address] , tel: [phone] [facility] CRNRY ATHRSCL NATVE VSSL 5 No Information [email or web address], [address], [place], [place], [address] , [place] tel: [phone] [facility] CHEST PAIN NOSSHORTNESS OF BREATHOBESITY NOS 5 No Information [email or web address], [address], [place], [place], [address] , [place] tel: [phone] [facility] ACUTE URI NOSDMII WO CMP UNCNTRLD 4 No Information [facility] [employer], [address], [place], [place], [address] , tel: [phone] [facility] HYPERTENSION NOS 3 Conversion Doctor. [address] [place] [address], [address], . Family History Family Member Type Diagnosis Age At Onset No Information Payers Payer name Insurance type Covered libertarian ID Authoriza tion(s) No Information Social History [...]
--- OUTSIDE RECORDS SUMMARY | 2025-02-06 10:53 | XMS_ITS | Clinical Summary ---
Author Organization [facility] [address] Address [address] [place] [address] Care Team Providers Care Haunted History Tour Guide Name Role Phone Tigre Romero MD Primary Care Provide r Allergies Active Allergy Reactions Criticality Noted Date Comments Amoxicillin Dizziness,Sweating Low 03/10/2022 No hives or wheezing. Pentazocine Other (See comments) Low Eyes rolled back; felt funny Medications insulin glargine (LANTUS) 100 unit/mL cartridge inject by subcutaneous route as per insulin protocol 0 05/02/20 11 Active Additional Information Patient not taking.Reported on 01/17/2025 cholecalcifero l (VITAMIN D3) 2,000 unit tablet take 1 by Oral route every day 0 07/10/19 12 Active docusate sodium (DOC-Q-LACE) 100 mg capsule take 1 capsule (100MG) by oral route every day at bedtime as needed 0 09/11/19 12 Active insulin lispro (HumaLOG) 100 unit/mL injection inject by subcutaneous route as per insulin sliding scale protocol 0 06/01/20 12 Active Additional Information Patient not taking.Reason: Other, Reported on 01/17/2025 aspirin (ASPIRIN LOW DOSE) 81 mg tablet take 1 tablet (81MG) by oral route every day 0 07/06/19 13 Active metoprolol XL (TOPROL-XL) 100 mg 24 hr tablet TAKE 1 TABLET (100MG) BY ORAL ROUTE EVERY DAY 90 5 12/18/19 12 Active louie.ivani ng,thigh,reg,m ed misc 1 Product as directed 2 each 03/22/20 Active furosemide (LASIX) 40 mg tabletIndicati ons:Localized swelling of both lower extremities Take 2 tablets (80 mg total) by mouth daily 180 tablet 3 03/10/20 Active Additional Information Patient taking differently: 40 mgoral Daily, Reported on 01/17/2025 potassium chloride ER (Klor-Con M20) 20 mEq CR tablet Take 1 tablet (20 mEq total) by mouth daily 90 tablet 3 04/15/20 Active rosuvastatin (CRESTOR) 40 mg tablet Take 1 tablet (40 mg total) by mouth daily 90 tablet 3 04/15/20 24 Active Mounjaro 7.5 mg/0.5 mL pen injector injection INJECT 7.5 MG BY SUBCUTANEOUS ROUTE ONCE WEEKLY 12/21/19 Active benazepriL (LOTENSIN) 40 mg tabletIndicati ons:Benign essential HTN Take 0.5 tablets (20 mg total) by mouth daily 01/18/20 25 Active benazepriL (LOTENSIN) 40 mg tabletIndicati ons:Benign essential HTN Take 1.5 tablets (60 mg total) by mouth daily 90 tablet 1 02/15/20 20 2024 Discontinued doxazosin (CARDURA) 1 mg tablet 02/12/20 21 2024 Discontinued(N o longer taking - Do not display on AVS) Mounjaro 5 mg/0.5 mL pen injector injection Inject 0.5 mL (5 mg total) under the skin 2024 Discontinued(A lternate therapy) Active Problems Problem Noted Date Diagnosed Date Bilateral impacted cerumen 07/17/2022 Assessment & Plan (07/15/2023 10:56 AM RAISER HELPER): Avoid ear cleaning techniques Avoid water to ears Follow up in 9 months for ear check Vinegar and alcohol recipe discussed and Handout provided Assessment & Plan (07/17/2022 11:17 AM RAISER HELPER): Have [place] adjust hearing aids Follow up in one year for ear check, earlier if needed Continue hearing aids Mixed conductive and sensori neural hearing loss of left ear with restricted hearing of right ear 07/17/2022 Assessment & Plan (07/17/2022 11:17 AM RAISER HELPER): Have [place] adjust hearing aids Follow up [...] Hyperlipidemia associated with type 2 diabetes m yaneliitus 06/11/2016 Overview (10/03/2016): Hypercholesteremia Assessment & Plan [...] few years. Coronary artery disease invo lving [place] coronary artery of [place] heart 06/06/2014 Overview (10/03/2016): Coronary atherosclerosis Assessment [...] Encounters Date Type Department Care Team Description 01/17/2025 10:30 AM CDT Office Visit [facility] [address] [place] [id number] Niyah Turner NP Benign essential HTN; History of hypotension from Last 3 Months Surgical History Surgery Date Site/Laterality Comments CARDIAC VALVE REPLACEMENT 06/29/2011 - 06/28/2012 aortic valve APPENDECTOMY 06/29/2006 - 06/28/2007 UMBILICAL HERNIA REPAIR 1940 - 06/28/1941 Medical History Medical History Date Comments Sleep apnea Hypertension Hyperlipidemia Diabetes (HCC) Obesity Family History Medical History Relation Name [...] on file Legal Sex Female 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 PM RAISER HELPER Gender Identity Not on file Sexual Orientation [...] Sign Reading Time Taken Comments Blood Pressure 122/52 01/17/2025 10:28 AM CDT Pulse 69 01/17/2025 10:28 AM CDT Temperature 35.7 C (96.2 F) 07/15/2023 10:28 AM RAISER HELPER Respiratory Rate 18 03/24/2023 10:41 AM CDT Oxygen Saturation 94% 01/17/2025 10:28 AM CDT Inhaled Oxygen Concentration - - Weight 115.2 kg (254 lb) 01/17/2025 10:28 AM CDT Height 167.6 cm (5' 6) 01/17/2025 10:28 AM CDT Body Mass Index 41 01/17/2025 10:28 AM CDT Plan of Treatment Health Maintenance Due Date Last Done Comments Albumin Creatinine Ratio, Urine 1940 Depression Screening 1940 Fall Risk Assessment 1940 Hemoglobin A1C 1940 Osteoporosis Screening-Bone Density Scan 1940 eGFR 1940 Dilated Eye Exam 1940 Foot Exam 1940 Hepatitis B Screening 1958 Zoster Vaccine (1 of 2) 1990 Well Visit 65+ 09/13/2021 09/13/2020 Covid-19 Vaccine (4 - 2023-2 5 season) 2024 06/25/2021, 08/21/2020, 07/31/2020 Lipid Panel 03/23/2024 03/23/2023, 02/27, 05/07/2020, Additional history exists Influenza Vaccine (#1) 2025 , 04/23/2022, 04/29/2021, Additional history exists DTaP/Tdap/Td Vaccine (3 - Td or Tdap) 01/22/2033 01/22/2023, 02/08/2017, 05/13/2012 Pneumococcal vaccine 65+ Completed 015, 03/16/2014, 12/15/2008 Procedures Procedure Name Priority Date/Time Associated Diagnosis Comments POCT LIPID PANEL Routine 03/23/2023 11:0 5 AM CDT Lipid screening from Last 3 Months or Most Recently Relevant to Health Maintenance Results * POCT lipid panel (03/23/2023 11:05 AM CDT) Cholesterol, POC 134 mg/dL HDL, POC 52 mg/dL Triglycerides, POC 222 mg/dL LDL Cholesterol POC 37 mg/dL Chol/HDL Ratio, POC 0.7 Non-HDL Cholesterol, POC 82 mg/dL Cholesterol Total, POC 134 mg/dL Capillary blood 03/23/2023 1 1:05 AM CDT us Ruby Campa MD POINT OF CARE TEST ORDERABL ES Final Result from Last 3 Months or Most Recently Relevant to Health Maintenance Insurance [place] [employer] MEDICARE [place] [employer] MEDICARE [facility] Care Teams Haunted History Tour Guide Relationship Specialty Start Date End Date Tigre Romero MD [address] [place] [address] PCP - General 09/26/16
--- OUTSIDE RECORDS SUMMARY | 2025-02-06 10:53 | XMS_ITS | Encounter Summary ---
Author Organization [facility] Address [address] [place] [address] Care Team Providers Care Skirt Trimmer Name Role Phone Tigre Romero MD Primary Care Provide r Tigre Romero MD Primary Care Provide r Encounter Details Date Type Department Care Team (Late st Contact Info) Description 07/10/2016 Orders Only [facility] ProviderAudie MD [address] [place] [id number] Social History Tobacco Use Types Packs/Day Years Used Date Smoking Tobacco: Never Alcohol Use Standard Drinks/Week Comments No 0 (1 standard drink = 0.6 oz pur e alcohol) Comments Unknown Sex and Gender Information Value Date Recorded Sex Assigned at Not on file 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
[2025-02-06 11:24] LABS: Hematocrit 44.1 % (35.0-42.0); Hemoglobin 14.3 g/dL (11.7-13.8); Immature Granulocyte Percent A 0.4 % (0.0-0.0); Lymphocytes Absolute Auto 2.40 K/mm3 (1.10-4.50); Mean Corpuscular HGB Conc 32.4 g/dL (32-36); Mean Corpuscular Hemoglobin 29.5 pg (27.0-31.0); Mean Corpuscular Volume 91.1 fL (78.0-102.0); Nucleated Red Blood Cells Absolute Auto 0.00 K/mm3 (0.00-0.00); Nucleated Red Blood Cells Perc 0.0 % (0-0.0); Platelet Count Result 136 K/mm3 (150-420); Red Blood Count 4.84 M/mm3 (4.20-5.40); White Blood Count 8.3 K/mm3 (4.8-10.8)
[2025-02-06 11:37] LABS: Hemoglobin A1C 8.4 % (<5.7)
[2025-02-06 12:10] LABS: Alanine Aminotransferase 16 U/L (6-35); Albumin Level 4.0 g/dL (3.5-5.1); Alkaline Phosphatase 101 U/L (38-126); Anion Gap 4 mmol/L (4-12); Aspartate Amino Transferase 23 U/L (14-36); Bilirubin,Total 0.7 mg/dL (0.2-1.3); Blood Urea Nitrogen 18 mg/dL (7-17); Calcium 10.1 mg/dL (8.4-10.2); Carbon Dioxide 28 mmol/L (22-30); Chloride 105 mmol/L (98-107); Estimated Glomerular Filt Rate > 60; Glucose 210 mg/dL (65-110); Osmolality Calculated 291 mOsm/kg (285-295); Potassium 4.7 mmol/L (3.4-5.0); Sodium 137 mmol/L (137-145); Total Protein 6.1 g/dL (6.3-8.2)
== END 2025-02-06 10:45 | disposition home or self-care (01) ==
LOC: CHSLAB 10:46
PROVIDERS: PCP Family Medicine; Visit Provider Family Medicine
DX: E11.21 Type 2 diabetes mellitus with diabetic nephropathy (principal)
CPT/HCPCS: 36415; 80053; 83036; 85025

== ENCOUNTER 2025-05-12 10:33 | Outpatient (CLI) | payer MEDICARE, SELFPAY ==
[2025-05-12 10:55] LABS: Hematocrit 45.5 % (35.0-42.0); Hemoglobin 14.5 g/dL (11.7-13.8); Immature Platelet Fraction Pct 8.2 % (1.0-7.0); Mean Corpuscular HGB Conc 31.9 g/dL (32-36); Mean Corpuscular Hemoglobin 29.2 pg (27.0-31.0); Mean Corpuscular Volume 91.7 fL (78.0-102.0); Platelet Count Result 125 K/mm3 (150-420); Red Blood Count 4.96 M/mm3 (4.20-5.40); White Blood Count 8.0 K/mm3 (4.8-10.8)
[2025-05-12 11:07] LABS: MALB Creatinine Ratio 16.9 mg/g (0-30)
[2025-05-12 11:10] LABS: Alanine Aminotransferase 17 U/L (6-35); Albumin Level 4.4 g/dL (3.5-5.1); Alkaline Phosphatase 91 U/L (38-126); Anion Gap 9 mmol/L (4-12); Aspartate Amino Transferase 24 U/L (14-36); Blood Urea Nitrogen 16 mg/dL (7-17); Calcium 9.8 mg/dL (8.4-10.2); Carbon Dioxide 27 mmol/L (22-30); Chloride 103 mmol/L (98-107); Estimated Glomerular Filt Rate > 60; Glucose 182 mg/dL (65-110); Osmolality Calculated 294 mOsm/kg (285-295); Potassium 4.2 mmol/L (3.4-5.0); Sodium 139 mmol/L (137-145); Total Protein 6.4 g/dL (6.3-8.2)
[2025-05-12 11:13] LABS: Hemoglobin A1C 7.6 % (<5.7)
[2025-05-12 11:27] LABS: Free T4 Free Thyroxine 1.51 ng/dL (0.78-2.19)
[2025-05-12 11:41] LABS: Thyroid Stimulating Hormone 4.470 uIU/mL (0.465-4.680)
[2025-05-16 16:18] LABS: Bilirubin,Total 0.9 mg/dL (0.2-1.3)
== END 2025-05-12 10:34 | disposition home or self-care (01) ==
PROVIDERS: PCP Family Medicine; Visit Provider Family Medicine
DX: I10 Essential (primary) hypertension (principal); R94.6 Abnormal results of thyroid function studies; E11.21 Type 2 diabetes mellitus with diabetic nephropathy
CPT/HCPCS: 36415; 80053; 82043; 82248; 83036; 84439; 84443; 85027; 85055

== ENCOUNTER 2025-06-18 20:25 | Emergency (ER) | payer MEDICARE, SELFPAY ==
[2025-06-18] VITALS (8 sets, daily range): BP systolic 118–144; BP diastolic 71–76; PULSE 78–98; RESP 14–23; TEMP 36.9; O2SAT 93–97
--- NOTE | ~2025-06-18 | XR_ITS ---
Examination: XR chest 1V portable Clinical History: new afib, SHORTNESS OF BREATH Comparison: None Technique: Portable AP Findings: Cardiomegaly. Minimally increased interstitial markings. No acute bony abnormality. IMPRESSION: 1. Suspect mild interstitial pulmonary edema and/or pneumonitis. Reviewed, dictated and finalized at location R. ET CUTTER
--- NOTE | ~2025-06-18 | CT_ITS ---
CTA CHEST CLINICAL HISTORY: AFib, high D-dimer . COMPARISON: Chest x-ray hours prior TECHNIQUE: Helical CTA performed from thoracic inlet to upper abdomen 140 mL Omnipaque 350 Coronal, sagittal reformats. Multiplanar MIPS CT images acquired with automatic exposure control for dose reduction DLP: 899 mGy-cm FINDINGS: Respiratory motion artifact could obscure abnormality. Pulmonary arteries: No PE identified. Thoracic Aorta: No dissection or aneurysm. Atherosclerotic disease. Heart/pericardium: Enlarged. RV/LV ratio: Normal. Lungs/Pleura: Mild interlobular septal thickening and scattered groundglass opacity. Tracheobronchial tree: Patent. Nodes: No enlarged nodes. Small mediastinal and hilar calcifications. Bones: No acute bony abnormality. Soft tissues: Unremarkable. Visualized upper abdomen: Gallstones. Colonic diverticula. Small hiatal hernia. IMPRESSION: 1. No PE identified. 2. Mild interstitial pulmonary edema and/or pneumonitis. Reviewed, dictated and finalized at location R. MECHANICAL ENGINEER
--- OUTSIDE RECORDS SUMMARY | 2025-06-18 20:27 | XMS_ITS | Encounter Summary ---
Author Organization [facility] Address [address] [place] [address] Care Team Providers Care Sports Clerk Name Role Phone Tigre Romero MD Primary Care Provide r Tigre Romero MD Primary Care Provide r Encounter Details Date Type Department Care Team (Late st Contact Info) Description 07/10/2016 Orders Only [facility] ProviderAudie MD [address] [place] [id number] Social History Tobacco Use Types Packs/Day Years Used Date Smoking Tobacco: Never Alcohol Use Standard Drinks/Week Comments No 0 (1 standard drink = 0.6 oz pur e alcohol) Comments Unknown Sex and Gender Information Value Date Recorded Sex Assigned at Not on file 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
--- OUTSIDE RECORDS SUMMARY | 2025-06-18 20:28 | XMS_ITS | Clinical Summary ---
Author Organization [facility] [address] Address [address] [place] [address] Care Team Providers Care Mounter Name Role Phone Tigre Romero MD Primary Care Provide r Allergies Active Allergy Reactions Criticality Noted Date Comments Amoxicillin Dizziness,Sweating Low 03/10/2022 No hives or wheezing. Pentazocine Other (See comments) Low Eyes rolled back; felt funny Medications insulin glargine (LANTUS) 100 unit/mL cartridge inject by subcutaneous route as per insulin protocol 0 1 Active Additional Information Patient not taking.Reported on 01/17/2025 cholecalciferol (VITAMIN D3) 2,000 unit tablet take 1 by Oral route every day 0 2 Active docusate sodium (DOC-Q-LACE) 100 mg capsule take 1 capsule (100MG) by oral route every day at bedtime as needed 0 2 Active insulin lispro (HumaLOG) 100 unit/mL injection inject by subcutaneous route as per insulin sliding scale protocol 0 2 Active Additional Information Patient not taking.Reason: Other, Reported on 01/17/2025 aspirin (ASPIRIN LOW DOSE) 81 mg tablet take 1 tablet (81MG) by oral route every day 0 3 Active metoprolol XL (TOPROL-XL) 100 mg 24 hr tablet TAKE 1 TABLET (100MG) BY ORAL ROUTE EVERY DAY 90 5 2 Active louie.stockin g,thigh,reg,med misc 1 Product as directed 2 each 9 Active furosemide (LASIX) 40 mg tabletIndicatio ns:Localized swelling of both lower extremities Take 2 tablets (80 mg total) by mouth daily 180 tablet 3 2 Active Additional Information Patient taking differently: 40 mgoral Daily, Reported on 01/17/2025 Mounjaro 7.5 mg/0.5 mL pen injector injection INJECT 7.5 MG BY SUBCUTANEOUS ROUTE ONCE WEEKLY 5 Active benazepriL (LOTENSIN) 40 mg tabletIndicatio ns:Benign essential HTN Take 0.5 tablets (20 mg total) by mouth daily 5 Active rosuvastatin (CRESTOR) 40 mg tablet TAKE 1 TABLET DAILY 90 tablet 1 5 Active potassium chloride ER 20 mEq CR tablet TAKE 1 TABLET DAILY 90 tablet 1 5 Active Active Problems Problem Noted Date Diagnosed Date Bilateral impacted cerumen 07/17/2022 Assessment & Plan (07/15/2023 10:56 AM DESIGN TEACHER): Avoid ear cleaning techniques Avoid water to ears Follow up in 9 months for ear check Vinegar and alcohol recipe discussed and Handout provided Assessment & Plan (07/17/2022 11:17 AM DESIGN TEACHER): Have [place] adjust hearing aids Follow up in one year for ear check, earlier if needed Continue hearing aids Mixed conductive and sensori neural hearing loss of left ear with restricted hearing of right ear 07/17/2022 Assessment & Plan (07/17/2022 11:17 AM DESIGN TEACHER): Have [place] adjust hearing aids Follow up [...] few years. Coronary artery disease invo lving [place] coronary artery of [place] heart 06/06/2014 Overview (10/03/2016): Coronary atherosclerosis Assessment [...] CDT): Hypertension isAt goal on medical therapy Surgical History Surgery Date Site/Laterality Comments CARDIAC VALVE REPLACEMENT 06/29/2011 - 06/28/2012 aortic valve APPENDECTOMY 06/29/2006 - 06/28/2007 UMBILICAL HERNIA REPAIR 1940 - 06/28/1941 Medical History Medical History Date Comments Sleep apnea Hypertension Hyperlipidemia Diabetes Obesity Family History Medical History Relation Name [...] on file Legal Sex Female 1:09 PM DESIGN TEACHER Gender Identity Not on file Sexual Orientation [...] 35.7 C (96.2 F) 07/15/2023 10:28 AM DESIGN TEACHER Respiratory Rate 18 03/24/2023 10:41 AM CDT [...] 03/23/2024 03/23/2023, 02/27, 05/07/2020, Additional history exists Covid-19 Vaccine (2024-07 6 season) 2025 06/25/2021, 08/21/2020, 07/31/2020 Influenza Vaccine (#1) 2025 , 04/23/2022, 04/29/2021, [...] Most Recently Relevant to Health Maintenance Insurance [facility] MED[facility] [place]ICARE [place] [employer] [place] [employer] [employer] [place] Care Teams Mounter Relationship Specialty Start Date End Date Tigre Romero MD [address] [place] [address] PCP - General 09/26/16
--- OUTSIDE RECORDS SUMMARY | 2025-06-18 20:28 | XMS_ITS | Data Portability ---
Author Organization [facility] Address [address] [place] [address] Assessment No assessment recorded. Plan of Treatment Reminders Order Date Submit Date Provider Last Modified By Organization Details Last Modified Time Details Appointments None recorded. Lab None recorded. Referral None recorded. Procedures None recorded. Surgeries None recorded. Imaging None recorded. Medication Orders Ciprodex 0.3 %-0.1 % ear drops,suspe nsion 2024 025 [facility] [address], [address], 12:32:17 mometasone 0.1 % topical cream 2024 025 [facility] [address], [address], 11:25:10 Patient TargetsNo targets recorded. Patient InstructionsNo instructions recorded. Reason for Referral None Reported. Medical Equipment None Reported. Allergies Allergen ID Allergen Name Allergen Category Reaction Reaction Severity Criticality Documentation Date Start Date Code Code System Note Provider Name and Address Organization Details Recorded Time [id number] amoxicill in medicatio n dizziness Not available low 04/25/20252021 723 RxNorm No hives or wheez ing. unrec ogniz ed react ion (text : Sweat ing, code: 13096 1001) (from exter nal sourc e) Not Available [place] - External Data Service - prod 04:44:12 20820705 pentazoci ne Not available other Not available low 04/25/2025 8001 RxNorm Eyes shelly d back; felt funny Not Available greg - External Data Service - prod 04:44:12 Medications Name Sig Start Date Stop Date Status Note LastModified by Organization Details LastModified Time furosemide 40 mg tablet active Not Available Not Available Not Available doxazosin 1 mg tablet 10/18 completed Not Available Not Available Not Available metoprolol succinate ER 100 mg tablet,exte nded release 24 hr 04/25 completed Not Available Not Available Not Available cephalexin [...] 2 TIMES PER DAY FOR 7 DAYS 04/25 completed Not Available Not Available Not Available rosuvastati n 40 mg tablet active Not Available Not Available Not Available Klor-Con M20 mEq tablet,exte nded release active Not Available Not Available Not Available BD Ultra-Fine Short Pen Needle 31 gauge x 5/16 active Not Available Not Available Not Available Humalog KwikPen (U-100) Insulin 100 unit/mL subcutaneou s 10/04 completed Not Available Not Available Not Available Mounjaro 7.5 mg/0.5 mL subcutaneou s pen injector INJECT 7.5 MG BY SUBCUTANE OUS ROUTE ONCE WEEKLY 04/25 completed Not Available Not Available Not Available Mounjaro 5 mg/0.5 mL subcutaneou s pen injector INJECT 5 MG SUBCUTANE OUSLY ONE TIME PER WEEK 12/20 completed Not Available Not Available Not Available Mounjaro 15 mg/0.5 mL subcutaneou s pen injector INJECT 15 MG BY SUBCUTANE OUS ROUTE ONCE WEEKLY active Not Available Not Available No t Available Mounjaro 10 mg/0.5 mL subcutaneou s pen injector INJECT 10 MG BY SUBCUTANE OUS ROUTE ONCE WEEKLY 04/25 completed Not Available Not Available Not Available Mounjaro 12.5 mg/0.5 mL subcutaneou s pen injector INJECT 12.5 MG BY SUBCUTANE OUS ROUTE ONCE WEEKLY 04/25 completed Not Available Not Available Not Available Vitals Date Recorded Body height Body mass index (BMI) Body weight Respiratory rate Body temperature Heart rate Systolic And Diastolic Provider Name and Address Organization Details Last Updated DateTime 165.1 cm 45.4 kg/m2 303197. 72 g 16 /min 98 [degF] 66 /min 126/72 mm[Hg] MARIO Borges [facility] 5 11:09:08 Date Recorded Body height Body weight Heart rate Body temperature Systolic And Diastolic Provider Name and Address Organization Details Last Updated DateTime 10/18/2024 165.1 cm 819905. 83 g 73 /min 97.7 [degF] 124/72 mm[Hg] Annia Gutierrez MA [facility] 5 11:02:59 Date Recorded Body height Body mass index (BMI) Body weight Heart rate Systolic And Diastolic Provider Name and Address Organization Details Last Updated DateTime 12/20/2024 165.1 cm 42.8 kg/m2 635812.6 8 g 73 /min 138/68 mm[Hg] Taylor Ontiveros [place] [facility] 12/20/2024 11:54:12 Date Recorded Body height Body mass index (BMI) Body weight Respiratory rate Body temperature Heart rate Systolic And Diastolic Provider Name and Address Organization Details Last Updated DateTime 165.1 cm 40.9 kg/m2 241091. 36 g 18 /min 97.6 [degF] 72 /min 127/74 mm[Hg] Tarik Bryant [facility] 5 12:35:43 Date Recorded Body height Body mass index (BMI) Body weight Respiratory rate Body temperature Heart rate Systolic And Diastolic Provider Name and Address Organization Details Last Updated DateTime 165.1 cm 47.2 kg/m2 477591. 87 g 16 /min 98.1 [degF] 65 /min 135/75 mm[Hg] Khushi Hinds MA [facility] 4 16:12:38 Social History Question Answer Notes LastModified by Organizat ion Details LastModified Time Tobacco Smoking Status Never Smoker Khushi Hinds MA [facility], [place] - [place] 06/07/2024 16:10:03 Do You Have An Advance [...] Date Of Your Most Recent Tobacco Screening? 04/25/2025 [email or web address] Information not available 04/25/2025 Do You Have Any Pets? No Information not available 06/07/2024 Do You Use Sunscreen Routinely? No Information not available 06/07/2024 Has Tobacco Cessation Counseling Been Provided? No [email or web address] Information not available 12/20/2024 Sex: Female Functional Status Question Answer Note [...] anxious, or unable to sleep at night)? [id number] Information not available 06/07/2024 Family History Nothing Reported. Medical History No medical history recorded. Gynecological HistoryNo gynecological history recorded. Obstetrics History GPAL:G 0 P 0 0 0 0 Immunizations Vaccine Type Date Status Note Provider Nam e and Address Organization Details Recorded Time pneumococcal polysaccharide PPV23 9 completed Not Available [facility] 04/25/2025 12:28:10 Influenza, high-dose, trivalent, PF 1 completed Not Available [facility] 04/25/2025 12:28:10 Td (adult), 2 Lf tetanus toxoid, preservative free, adsorbed 2 completed Not Available [facility] 04/25/2025 12:28:10 Influenza, high-dose, trivalent, PF 2 completed Not Available [facility] 04/25/2025 12:28:10 Influenza, high-dose, trivalent, PF 3 completed Not Available [facility] 04/25/2025 12:28:10 pneumococcal polysaccharide PPV23 4 completed Not Available [facility] 04/25/2025 12:28:10 Influenza, split virus, trivalent, preservative 4 completed Not Available [facility] 04/25/2025 12:28:10 Pneumococcal conjugate PCV 13 5 completed Not Available [facility] 04/25/2025 12:28:10 Influenza, split virus, quadrivalent, preservative 5 completed Not Available [facility] 04/25/2025 12:28:10 Influenza, split virus, quadrivalent, PF 6 completed Not Available [facility] 04/25/2025 12:28:10 Tdap 7 completed Not Available [facility] 04/25/2025 12:28:10 Influenza, split virus, quadrivalent, preservative 7 completed Not Available [facility] 04/25/2025 12:28:10 Influenza, split virus, quadrivalent, PF 8 completed Not Available [facility] 04/25/2025 12:28:10 Influenza, split virus, quadrivalent, PF 9 completed Not Available [facility] 04/25/2025 12:28:10 COVID-19, mRNA, LNP-S, PF, 30 mcg/0.3 mL dose 1 completed Not Available [facility] 04/25/2025 12:28:10 COVID-19, mRNA, LNP-S, PF, 30 mcg/0.3 mL dose 1 completed Not Available [facility] 04/25/2025 12:28:10 Influenza, split virus, quadrivalent, PF 1 completed Not Available [facility] 04/25/2025 12:28:10 COVID-19, mRNA, LNP-S, PF, 30 mcg/0.3 mL dose 1 completed Not Available [facility] 04/25/2025 12:28:10 COVID-19, mRNA, LNP-S, bivalent, PF, 30 mcg/0.3 mL dose 2 completed Not Available [facility] 04/25/2025 12:28:10 Influenza, split virus, quadrivalent, PF 2 completed Not Available [facility] 04/25/2025 12:28:10 Tdap [address] [facility] 04/25/2025 12:28:10 Pneumococcal conjugate PCV20, polysaccharide NHA434 conjugate, adjuvant, PF 3 completed Not Available [facility] 04/25/2025 12:28:10 Influenza, adjuvanted, quadrivalent, PF 3 completed Not Available [facility] 04/25/2025 12:28:10 Influenza, split virus, trivalent, PF 4 completed Not Available [facility] 04/25/2025 12:28:10 Past Encounters Encounter ID Performer Location Encounter Start Date Encounter Closed Date Diagnosis/Indication Diagnosis SNOMED-CT Code Diagnosis ICD10 Code Diagnosis IMO Codes Diagnosis [id number] [facility] [address] [place] [address] 06/07/2024 16:03:29 06/13/2024 09:27:48 Impacted cerumen of bilateral ears 2512164932 038692 H61.23 ears cleared return as needed [id number] MD Shankar Florentino (Adult Med) [address] [place] [address] 10/04/2024 10:58:55 10/05/2024 10:27:52 Chronic otitis externa 16790872 H60.63 follow back in two weeks Dermatitis of external auditory canal 220445785 H60.93 [id number] MD Shankar Florentino (Adult Med) [address] [place] [address] 10/18/2024 10:54:25 10/20/2024 10:10:31 Dermatitis of external ear 605114866 L30.9 12873864 much improved follow back as needed [id number] MD Naomi Florentinohalto (Adult Med) [address] [place] [address] 12/20/2024 11:48:18 12/21/2024 11:31:15 Impacted cerumen in right ear 2841610276 273015 H61.21 4594923 ear cleared return as needed [id number] MD Shankar Florentino (Adult Med) [address] [place] [address] 04/25/2025 12:25:36 04/26/2025 13:24:28 Impacted cerumen of bilateral ears 1242063271 139933 H61.23 414692 ears cleared return as needed Health Concerns Section Related Observation LastModified by Organization Detai ls LastModified Time None Recorded Concern Status LastModified by Organization Details LastModified Time None Recorded Advance Directives Directive Y: Payers Insurance Date Sequence Insurance Name Policy Number Policy Koo Covered Member ID Koo Member ID Guarantor Name 12/22/2024 2 [employer] (MEDICARE SUPPLEMENT) Delilah Latif [id number] Delilah Latif 04/22/2025 1 [place] Delilah Latif [id number] Delilah Latif 04/22/2025 [place] [employer] [place] [employer] Delilah Latif [id number] Delilah Latif Notes Date Note Type Note Provider Name and Address Organization Details Recorded Time 06/07/2024 text/html ROS as noted in the HPI Pt complaining of blockage of her ears. She wears hearing aids and was told she has wax Joshua Tolliver MD Attn: [address] [place], [place], [address] [place] [address], [facility] 06/07/2024 16:23:12 10/04/2024 text/html ROS as noted in the HPI Pt complaining of blockage of her ears. She has a hx of cerumen. She has been getting dermatitis of her pinna as well Joshua Tolliver MD Attn: Accounting,[address] [facility], [place], [place], [address] [place] [address], [facility] 10/04/2024 11:23:12 10/18/2024 text/html ROS as noted in the HPI Pt complaining of blockage and itching of her ears. She is much improved with steroid cream and drops Joshua Tolliver MD Attn: Accounting,[address] [place], [place], [address] [place] [address], [place] [facility] 10/18/2024 11:09:48 12/20/2024 text/html Pt complaining of blockage of her ears. She wears hearing aids. Joshua Tolliver MD Attn: Accounting,[address] [place], [place], [address] [place] [address], [facility] 12/20/2024 12:08:58 04/25/2025 text/html ROS as noted in the HPI Pt complaining of blockage of her ears. the left is worse than the right. She has a hx of cerumen Joshua Tolliver MD Attn: Accounting,[address] [facility], [place], [address], [facility] 04/25/2025 12:48:28 OBGyn Episode No OBEpisode recorded.
--- NOTE | 2025-06-18 21:44 | ECG_ITS ---
Test Date: 2025-06-18 20:31:34 Measurements Intervals [place] Rate: 114 P: 0 AL: 0 QRS: 51 QRSD: 88 T: 86 QT: 342 QTc: 473 Interpretive Statements ATRIAL FIBRILLATION WITH RAPID VENTRICULAR RESPONSE CONSIDER ANTERIOR INFARCT, AGE INDETERMINATE CONSIDER INFERIOR INFARCT, AGE INDETERMINATE BORDERLINE ST-T WAVE ABNORMALITY- HIGH LATERAL LEADS BASELINE ARTIFACT- I, II, III, AVR, AVL, AVF, V1-V6 ABNORMAL ECG No previous ECG available for comparison Electronically Signed On 06-19-2025 06:59:43 REFRACTORY MIXER by Israel Naylor D.O.
--- NOTE | 2025-06-18 21:50 | ED_ITS ---
HPI - General Adult General Chief complaint: Recheck/Abnormal Lab/Rx Stated complaint: elevated heart rate Time Seen by Provider: 06/18/25 20:27 History of Present Illness HPI narrative: 85-year-old white female with previous history of atrial fibrillation a number of years ago, presents today after her smart watch was intermittently showing heart rates around 130 yesterday and today. She denies any chest pain yesterday or today denies shortness of breath, lightheadedness, near-syncope or syncope. Reports she never would have known that there was an issue with her heart rate with out accidentally looking at her smart watch and seeing the high heart rate. She comes in now concerned that she may be having another episode of AFib. As noted above her review of systems is completely negative at this time. There is no recent fever, chills, sinus drainage, sore throat, cough, chest pain, palpitations, near-syncope or syncope. There is no recent abdominal pain, nausea vomiting, diarrhea constipation, dysuria urgency or frequency Related Data Home Medications ?Medication ?Instructions ?Recorded ?Confirmed ?Last Taken ?Type aspirin 81 mg tablet,delayed 81 mg PO DAILY 09/30/21 0 10/05/23 Unknown History release benazepril 40 mg tablet 60 mg PO DAILY 09/30/2102/19 Unknown History docusate sodium 50 mg capsule 100 mg PO DAILY 09/30/21 10/05/23 Unknown History (Colace Clear) furosemide 40 mg tablet 60 mg PO QAM 09/30/21 Unknown History insulin glargine 100 unit/mL (3 30 unit subcut QPM 10/1810/05/23 Unknown History mL) subcutaneous pen (Lantus Solostar U-100 Insulin) insulin lispro 100 unit/mL 1 sliding scale dose subcut 09/30/21 10/05/23 Unknown History subcutaneous cartridge (Humalog USEASDIRECTD U-100 Insulin) metoprolol succinate 100 mg 100 mg PO BID 09/30/2102/19 Unknown History tablet,extended release 24 hr potassium chloride 20 mEq 20 meq PO DAILY 09/30/2102/19 Unknown History tablet,extended release(part/cryst) (Klor-Con M) rosuvastatin 40 mg tablet (Crestor) 40 mg PO HS 10/05/23 Unknown History cholecalciferol (vitamin D3) 50 50 mcg PO DAILY 10/05/23 Unknown History mcg (2,000 unit) tablet (Vitamin D3) Allergies Allergy/AdvReac Type Severity Reaction Status Date / Time pentazocine Allergy Unknown ALMOST Verified 06/18/25 23:33 FAINTED amoxicillin Allergy Loss of Verified 06/18/25 23:33 Consciousness Review of Systems 2 Review of Systems: ROS is negative except as in [facility] Past Medical History Medical History Left knee pain Hypertension High cholesterol Diabetes Left knee DJD BMI greater than 40 Right knee pain Surgical History Surgical History History of total knee arthroplasty Family History Family History Other Diabetes mellitus Hypertension Social History Social History Smoking status: Former smoker Alcohol intake: current Exam 2 Narrative: pleasant, well-appearing, appropriately interactive, no acute distress Morbidly obese, no dyspnea Const: General: cooperative, healthy appearing, comfortable, no acute distress, well developed, alert, awake and Physically active O rientation/consciousness: patient oriented x3 HENMT: Head: normal to inspection, normocephalic and atraumatic Ears: h earing grossly normal bilaterally and external ears normal Face/Nose/Sinus: N ormal external nose present, Normal nares present, Normal nasal mucous membranes and turbinates present and normal facial exam Face and sinus: normal facial exam Mouth: Yes Normal oral and palatal mucosa present, Yes lip normal, Yes tongue normal, Yes oropharynx normal and Yes moist mucous membranes Teeth and gingiva: dentition normal Throat: posterior oropharynx normal and tonsils normal ( erythematous) Eyes: General: appearance normal, both eyes and all related structures A lignment and Position: alignment normal and position normal Periorbital: p eriorbital findings normal Eyelids: eyelids normal Conjunctivae: c onjunctivae normal Sclera: sclerae normal Cornea: corneas normal P upils: Equal, round and reactive pupils present EOM: EOMs intact bilaterally Neck: Neck: normal visual inspection, full ROM and no lymphadenopathy Chest: Chest palpation & inspection: normal inspection of the chest Resp: Effort & Inspection: normal respiratory effort, able to speak in complete sentences, no audible wheezes, no respiratory distress and no use of accessory muscles Auscultation: clear to auscultation bilaterally Cardio: Jugular venous distension: no JVD Rate: abnormal rate Rhythm: a bnormal rhythm and abnormal rhythm Heart sounds: Murmur heart sound present (2/6 systolic ejection murmur, prominent S2) GI: Inspection: normal to inspection GI Palp: No abdominal tenderness, No Tenderness to palpation present (GI), No Guarding due to palpation present (GI), No No hepatosplenomegaly present, No Palpable mass present and No Rebound tenderness present Back/Spine/Pelvis: Back: back tenderness (There is diffuse lumbar sacral tenderness on palpation without specific poi) Skin: General skin exam: normal color, no rashes or lesions noted, elasticity normal and turgor normal Neuro: General: patient oriented x3, gait normal, tone normal and moves all extremities Cranial nerves: Yes CN's II-XII intact bilaterally, Yes Equal, round and reactive pupils present and Yes Bilaterally intact EOM present S peech: normal speech Motor exam (neuro): 5/5 motor strength present throughout and Normal motor muscle tone present throughout Sensory Exam: n ormal sensation Extrem: General: normal to inspection, normal exam except as noted and no pedal edema (1+ pitting edema) Psych: Appearance: grossly normal and well kempt Mental Status: mental status grossly normal Speech and movement: Normal speech and movement present Affect: normal affect Attitude: cooperative Thought process: Normal thought process present Course Course Emergency Course: Differential diagnosis includes but is not limited to recurrent atrial fibrillation, electrolyte abnormality, CHF, renal insufficiency medication side effect, PE EKG shows atrial fibrillation with rate of 115, normal axis, there is no significant R-wave until before, potentially consistent with old anterior lateral VA. there is no ST elevation or depression present Patient was given metoprolol 100 mg long-acting Chest x-ray demonstrates Lab workup shows H&H 13.741.3 with a normal white count of 6300. INR is 1 D-dimer is 1.35 CMP is normal except for BUN of 18 creatinine 1.15, GFR is 45 CT angio of the chest is negative for PE Initial D-dimer was negative, subsequent D-dimer was negative Rhythm stabilized throughout, at about 85, with occasional bump ups. Patient was noted to go in and out of atrial fibrillation. I discussed with her potential symptoms over the past few weeks, and her daughter noted a subtle change about 5 or 6 days ago, although can not determine that that is when she went in AFib. Since she was completely asymptomatic while having AFib with RVR, this may have been going on for quite some time, so I am hesitant to formally convert her and maintain her in sinus rhythm, but think a period of time of anticoagulation prior to attempts at cardioversion would be appropriate. EKG does not show any evidence of ischemia even when she was in RVR. The 1st couple of troponins are very low. 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 O2 decision making complexity and risk was high with evaluation of extensive labs, images, radiology reports, monitors, EKG, complex decision making regarding differential diagnosis, and treatment options Vital Signs Vital signs: Vital Signs Temperature 36.9 C 06/18/25 20:25 Pulse Rate 96 06/18/25 20:25 Respiratory Rate 18 06/18/25 20:25 Blood Pressure 144/76 H 06/18/25 20:25 Pulse Oximetry 93 06/18/25 20:25 Oxygen Delivery Room Air 06/18/25 20:25 Temperature 36.9 C 06/18/25 20:25 Pulse Rate 78 06/19/25 01:45 Respiratory Rate 23 H 06/19/25 01:45 Blood Pressure 144/78 H 06/19/25 01:01 Pulse Oximetry 97 06/19/25 01:45 Oxygen Delivery Room Air 06/18/25 20:25 MDM Differential Diagnosis Differential Diagnosis: Differential diagnosis is in the ED course Lab Data 06/18/25 22:13 06/18/25 22:13 Labs: Lab Results 06/18/25 06/18/25 06/19/25 Range/Units 22:13 22:37 00:24 WBC 6.3 (4.8-10.8) K/mm3 RBC 4.54 (4.20-5.40) M/mm3 Hgb 13.7 (11.7-13.8) g/dL Hct 41.3 (35.0-42.0) % MCV 91.0 (78.0-102.0) fL MCH 30.2 (27.0-31.0) pg MCHC 33.2 (32-36) g/dL RDW 13.2 (11.6-14.4) % Plt Count 123 L (150-420) K/mm3 MPV 11.3 (9.2-11.8) fl Immature Gran % (Auto) 0.3 H (0.0-0.0) % Neut % (Auto) 58.6 (50.0-70.0) % Lymph % (Auto) 27.7 (18.0-42.0) % Edmunds % (Auto) 10.8 (2.0-11.0) % Eos % (Auto) 1.7 (1.0-6.0) % Baso % (Auto) 0.9 (0.0-1.0) % Lymph # (Auto) 1.75 (1.10-4.50) K/mm3 Edmunds # (Auto) 0.68 (0.10-0.90) K/mm3 Eos # (Auto) 0.11 (0.02-0.50) K/mm3 Baso # (Auto) 0.06 (0.00-0.10) K/mm3 Abs Immat Gran (auto) 0.02 H (0.00-0.00) K/mm3 Absolute Neuts (auto) 3.70 (1.70-7.20) K/mm3 Absolute Nucleated RBC 0.00 (0.00-0.00) K/mm3 Nucleated RBC % 0.0 (0-0.0) % % Immature Plt Fraction 6.3 (1.0-7.0) % PT 10.8 (9.50-12.1) Seconds INR 1.0 APTT 23.6 L (23.9-30.70) Sec D-Dimer 1.35 H (0.19-0.50) mg/L Sodium 138 (137-145) mmol/L Potassium 3.8 (3.4-5.0) mmol/L Chloride 105 (98-107) mmol/L Carbon Dioxide 26 (22-30) mmol/L Anion Gap 7 (4-12) mmol/L BUN 18 H (7-17) mg/dL Creatinine 1.15 H (0.7-1.0) mg/dL Estim Creat Clear Calc 39 ml/min Estimated GFR 45 L (59 - ) Glucose 187 H (65-110) mg/dL Calculated Osmolality 292 (285-295) mOsm/kg Calcium 9.5 (8.4-10.2) mg/dL Total Bilirubin 0.5 (0.2-1.3) mg/dL AST 24 (14-36) U/L ALT 18 (6-35) U/L Alkaline Phosphatase 101 (38-126) U/L Troponin I 0.050 H* 0.051 H* (0.000-0.034) ng/mL NT-Pro-B Natriuret Pep 2670 H (19.9-100) pg/mL Total Protein 6.2 L (6.3-8.2) g/dL Albumin 4.0 (3.5-5.1) g/dL Urine Color Light yellow (Yellow) Urine Appearance Clear (Clear) Urine pH 5.5 (5.0-8.0) Ur Specific [place] 1.020 (1.010-1.020) Urine Protein Negative (Negative) Urine Glucose (UA) Trace H (Negative) Urine Ketones Trace H (Negative) Ur Blood (Man) Negative (Negative) Urine Nitrate Negative (Negative) Urine Bilirubin Negative (Negative) Urine Urobilinogen 1.0 (0.2-1.0) mg/dL Leukocyte Esterase Rfl Negative (Negative) ARIELLE/UL Discharge Plan Discharge Clinical Impression: Atrial fibrillation Qualifiers: Atrial fibrillation type: paroxysmal Qualified Code(s): I48.0 - Paroxysmal atrial fibrillation Patient Disposition: Home Condition: Stable Instructions: A-fib (Atrial Fibrillation) (ED), Weight Management (ED) Additional Instructions: Atrial fibrillation I am going to increase your Lopressor by adding 50 mg at HS No heavy exertion Sleep with a pillow under your neck so that your head and neck are extended Increase fluids Talk with your doctor about getting a sleep study as you are at very high risk of having obstructive sleep apnea Talk to your grinding machine operator portable about further adjusting her medications Begin metoprolol tartrate 50 mg at 8 pm each evenin Begin Eliquis as prescribed Return to the emergency department worsens Monitor your heart rhythm and rate, your blood pressure, and call your primary care physician to set up follow-up later in the week for consideration of sleep study Call your grinding machine operator portable to set up follow-up this week for consideration of echo and stress test an adjustment of medications Patient Language: Ukrainian Prescriptions: New metoprolol tartrate 50 mg tablet 50 mg PO QHS Qty: 30 0RF Eliquis 5 mg tablet 5 mg PO BID Qty: 60 0RF No Action cholecalciferol (vitamin D3) [Vitamin D3] 50 mcg (2,000 unit) Tablet 50 mcg PO DAILY benazepril 40 mg tablet 60 mg PO DAILY Lantus Solostar U-100 Insulin 100 unit/mL (3 mL) insulin pen 30 unit subcut QPM metoprolol succinate 100 mg tablet extended release 24 hr 100 mg PO BID Humalog U-100 Insulin 100 unit/mL cartridge 1 sliding scale dose subcut USEASDIRECTD furosemide 40 mg tablet 60 mg PO QAM rosuvastatin [Crestor] 40 mg tablet 40 mg PO HS aspirin 81 mg tablet,delayed release (DR/EC) 81 mg PO DAILY potassium chloride [Klor-Con M20] 20 mEq tablet,ER particles/crystals 20 meq PO DAILY Colace Clear 50 mg capsule 100 mg PO DAILY Follow-up/Referrals: Tigre Romero MD [Primary Care Provider, Internal Medicine] Time of Disposition: 05:39
--- NOTE | 2025-06-18 22:15 | PC.NURSE ---
pt ambulated to bathroom for urine specimen
[2025-06-18 22:20] LABS: Hematocrit 41.3 % (35.0-42.0); Hemoglobin 13.7 g/dL (11.7-13.8); Immature Granulocyte Percent A 0.3 % (0.0-0.0); Immature Platelet Fraction Pct 6.3 % (1.0-7.0); Lymphocytes Absolute Auto 1.75 K/mm3 (1.10-4.50); Mean Corpuscular HGB Conc 33.2 g/dL (32-36); Mean Corpuscular Hemoglobin 30.2 pg (27.0-31.0); Mean Corpuscular Volume 91.0 fL (78.0-102.0); Nucleated Red Blood Cells Absolute Auto 0.00 K/mm3 (0.00-0.00); Nucleated Red Blood Cells Perc 0.0 % (0-0.0); Platelet Count Result 123 K/mm3 (150-420); Red Blood Count 4.54 M/mm3 (4.20-5.40); White Blood Count 6.3 K/mm3 (4.8-10.8)
[2025-06-18 22:33] LABS: INR 1.0; Partial Thromboplastin Time 23.6 Sec (23.9-30.70); Prothrombin Time 10.8 Seconds (9.50-12.1)
[2025-06-18 22:43] LABS: Add Urine Microscopic? NO; Appearance Urine Clear (Clear); Glucose Urine UA Trace (Negative); Leukocyte Esterase Ur Negative LEU/UL (Negative); Nitrate Urine Negative (Negative); Specific Grav Ur 1.020 (1.010-1.020)
[2025-06-18 22:47] LABS: Alanine Aminotransferase 18 U/L (6-35); Albumin Level 4.0 g/dL (3.5-5.1); Alkaline Phosphatase 101 U/L (38-126); Anion Gap 7 mmol/L (4-12); Aspartate Amino Transferase 24 U/L (14-36); Bilirubin,Total 0.5 mg/dL (0.2-1.3); Blood Urea Nitrogen 18 mg/dL (7-17); Calcium 9.5 mg/dL (8.4-10.2); Carbon Dioxide 26 mmol/L (22-30); Chloride 105 mmol/L (98-107); Estimated CRCL calculation 39 ml/min; Estimated Glomerular Filt Rate 45; Glucose 187 mg/dL (65-110); Osmolality Calculated 292 mOsm/kg (285-295); Potassium 3.8 mmol/L (3.4-5.0); Sodium 138 mmol/L (137-145); Total Protein 6.2 g/dL (6.3-8.2)
[2025-06-18 22:59] LABS: NT Pro B Type Natriuretic Pept 2670 pg/mL (19.9-100)
[2025-06-18 23:00] LABS: Troponin I 0.050 ng/mL (0.000-0.034)
[2025-06-18] MEDS: METOPROLOL TARTRATE 50 MG TAB 100 MG PO (23:42)
[2025-06-18] MEDS: APIXABAN 2.5 MG TABLET 5 MG PO (23:44)
[2025-06-18] MEDS: ASPIRIN 81 MG CHEWABLE TABLET 324 MG PO (23:46)
[2025-06-19] VITALS (15 sets, daily range): BP systolic 129–144; BP diastolic 61–78; PULSE 64–99; RESP 14–24; O2SAT 93–100
[2025-06-19 01:03] LABS: Troponin I 0.051 ng/mL (0.000-0.034)
--- NOTE | 2025-06-19 05:45 | PC.NURSE ---
ERP aware of vitals. No new orders.
== END 2025-06-19 05:57 | disposition home or self-care (01) ==
PROVIDERS: Emergency Provider Emergency Medicine; PCP Family Medicine
DX: I48.0 Paroxysmal atrial fibrillation (principal); I10 Essential (primary) hypertension; E11.9 Type 2 diabetes mellitus without complications; Z87.891 Personal history of nicotine dependence
CPT/HCPCS: 36415; 71045; 71275; 80053; 81003; 83880; 84484; 85025; 85055; 85380; 85610; 85730; 93005; 99284; A9270; Q9967